=== PATIENT | male | born 1980 | race Asian ===

== ENCOUNTER 2019-09-02 14:49 | Inpatient (IN) | payer OTHER ==
[~2019-09-02] VITALS: Ht 170.2 cm; Wt 71.3 kg
--- NOTE | 2019-09-02 14:49 | NUR ---
ED Nurse Note: brought in by ambulance lafd ra 858 from home co abdominal pain with nausea and vomitting. denies diarrhea; reports soft formed stools x 1 today. ao4. nad. vss. changed into gown. resting in bed; bed locked at lowest position; side rails raised. iv access established. blood collected; sent down to lab. accompanied by family member. will continue to monitor.
[2019-09-02 15:00] VITALS: BP 120/70
[2019-09-02] MEDS ORDERED: Omnipaque-300 100ml vial INJ PRN (15:15)
[2019-09-02] MEDS ORDERED: Morphine Sulfate 2mg/ml Inj(IV/IM USE ONLY) IVP ONE ×3 (15:15→19:00)
[2019-09-02 15:40] LABS: HEMATOCRIT 48.4 % (42.0-52.0); HEMOGLOBIN 16.2 G/DL (14.2-18.0); MEAN CORPUSCULAR VOLUME 82 FL (80-99); PLATELET COUNT 197 K/UL (150-450); RED BLOOD COUNT 5.88 M/UL (4.70-6.10); RED CELL DISTRIBUTION WIDTH 12.2 % (11.6-14.8); WHITE BLOOD COUNT 17.1 K/UL (4.8-10.8)
--- NOTE | 2019-09-02 16:00 | NUR ---
ED Nurse Note: discussed plan of care with patient; aware of pending admission. patient medicated; tolerated well. accompanied by family member. repositioned for comfort; provided with warm blanket. will continue to monitor.
[2019-09-02 16:02] LABS: ANION GAP 10 mmol/L (5-15); BLOOD UREA NITROGEN 17 mg/dL (7-18); CALCIUM 9.5 MG/DL (8.5-10.1); CARBON DIOXIDE 28 MMOL/L (21-32); CHLORIDE 102 MMOL/L (98-107); POTASSIUM 4.1 MMOL/L (3.5-5.1); SODIUM 140 MMOL/L (136-145)
[2019-09-02 16:07] LABS: ALANINE AMINOTRANSFERASE 32 U/L (12-78); ALBUMIN 4.1 G/DL (3.4-5.0); ALBUMIN/GLOBULIN RATIO 1.1 (1.0-2.7); ALKALINE PHOSPHATASE 62 U/L (46-116); ASPARTATE AMINO TRANSFERASE 29 U/L (15-37); BILIRUBIN,TOTAL 0.3 MG/DL (0.2-1.0); CREATINE KINASE 254 U/L (26-308)
--- NOTE | 2019-09-02 17:07 | Diagnostic Imaging Report ---
Clinical Indication: Abdominal pain with nausea, vomiting, diarrhea Technique: No oral contrast utilized, per emergency room physician request IV administration nonionic contrast. Venous obtained through the abdomen and pelvis. Multiplanar reconstructions were generated. Total dose length product 234 mGycm. CTDIvol(s) 4 mGy. Dose reduction achieved using automated exposure control Comparison: none Findings: There is slight enlargement of the pancreas. There is peripancreatic fluid extending into the mesenteric root, transverse mesial colon, and along the anterior Gerota's fascia bilaterally and in the left paracolic gutter. There is also free intraperitoneal fluid within the pelvic mesenteric leaves and pelvic cul-de-sac. The pancreatic parenchyma enhances normally. There are no discrete walled off fluid collections demonstrated. The gallbladder demonstrates questionable sludge but no definite gallstones. The bile ducts are nondilated and there are no definite biliary ductal stones demonstrated. The liver, spleen, adrenals, right kidney are unremarkable. Left kidney demonstrates a small interpolar region cyst. No retroperitoneal or mesenteric mass or adenopathy. No pelvic mass or adenopathy. The included lung bases demonstrate dependent posterior atelectatic changes, are otherwise clear. The bones are unremarkable., Impression: Evidence of uncomplicated nonnecrotizing acute pancreatitis Incidental finding of small interpolar region left renal cyst, posterior dependent pulmonary atelectatic changes The CT scanner at [facility] is accredited by the [employer] and the scans are performed using protocols designed to limit radiation exposure to as low as reasonably achievable to attain images of sufficient resolution adequate for diagnostic evaluation.
--- NOTE | 2019-09-02 17:09 | Diagnostic Imaging Report ---
Indication: Chest pain Technique: One view of the chest Comparison: none Findings: Lungs and pleural spaces are clear. The heart size is normal. The aorta is slightly tortuous Impression: No acute process
--- NOTE | 2019-09-02 17:40 | NUR ---
ED Nurse Note: urine collected; sent down to lab.
[2019-09-02 18:30] VITALS: BP 121/69
[2019-09-02 18:42] LABS: APPEARANCE,URINE CLEAR; BILIRUBIN, URINE NEGATIVE (NEGATIVE); COLOR,URINE YELLOW; GLUCOSE, URINE (UA) NEGATIVE (NEGATIVE); KETONES,URINE NEGATIVE (NEGATIVE); LEUKOCYTE ESTERASE ,URINE NEGATIVE (NEGATIVE); NITRITE,URINE NEGATIVE (NEGATIVE); PH,URINE 6.5 (4.5-8.0); PROTEIN,URINE NEGATIVE (NEGATIVE); UROBILINOGEN,URINE NORMAL MG/DL (0.0-1.0)
--- NOTE | 2019-09-02 19:00 | NUR ---
ED Nurse Note: belongingslist completed with patient.
--- NOTE | 2019-09-02 19:15 | NUR ---
ED Nurse Note: type and cross and hep panel drawn; sent down to lab.
--- NOTE | 2019-09-02 19:29 | Emergency Room Report ---
History of Present Illness General Chief Complaint: Abdominal Pain Source: Patient Present Illness HPI 38-year-old male with no significant past medical history brought in by paramedics complaining of sudden onset of acute abdominal pain starting this morning. Rates the pain 10 out of 10 mostly epigastric. Complains of few bouts of nonbloody emesis, denies diarrhea, denies fever and chills. Has not taken medication for symptom relief. Reports that now the pain is radiating to his chest. Denies headache and dizziness. Denies urinary symptoms. Denies history of alcohol abuse, tobacco smoke, drug use. Denies any surgical history in abdomen. Appears to be stable with stable vital signs. Allergies: Coded Allergies: No Known Allergies (Unverified , 09/02/19) Patient History Past Medical History: see triage record Past Surgical History: none Pertinent Family History: none Immunizations: UTD Reviewed Nursing Documentation: PMH: Agreed; PSxH: Agreed Nursing Documentation-PMH Past Medical History: No Stated History Review of Systems All Other Systems: negative except mentioned in HPI Physical Exam Vital Signs Date Time Temp Pulse Resp B/P (MAP) Pulse Ox O2 Delivery O2 Flow Rate FiO2 09/02/19 14:42 97.3 60 16 120/70 (87) 100 Room Air Sp02 EP Interpretation: reviewed, normal General Appearance: alert, GCS 15, non-toxic, moderate distress Head: normocephalic, atraumatic Eyes: bilateral eye normal inspection, bilateral eye PERRL ENT: hearing grossly normal, normal pharynx, no angioedema, normal voice Neck: full range of motion, supple/symm/no masses Respiratory: chest non-tender, lungs clear, normal breath sounds, no rhonchi, no respiratory distress, no retraction, speaking full sentences Cardiovascular #1: regular rate, rhythm, no edema, no murmur Gastrointestinal: non tender, soft, no mass, no organomegaly, no peritonitis, no bruit, no guarding, no hernia, no pulsatile mass, no rebound Rectal: deferred Musculoskeletal: back normal, no calf tenderness Neurologic: alert, motor strength/tone normal, oriented x3, sensory intact, responsive, speech normal Psychiatric: judgement/insight normal, memory normal, mood/affect normal, no suicidal/homicidal ideation Skin: no rash Lymphatic: no adenopathy Medical Decision Making PA Attestation All my diagnosis and treatment plans were reviewed ad discussed with my supervising physician Dr. Scott Diagnostic Impression: Primary Impression: Pancreatitis ER Course 38-year-old male with no significant past medical history brought in by paramedics complaining of sudden onset of acute abdominal pain starting this morning. Rates the pain 10 out of 10 mostly epigastric. Complains of few bouts of nonbloody emesis, denies diarrhea, denies fever and chills. Has not taken medication for symptom relief. Reports that now the pain is radiating to his chest. Denies headache and dizziness. Denies urinary symptoms. Denies history of alcohol abuse, tobacco smoke, drug use. Denies any surgical history in abdomen. Appears to be stable with stable vital signs. Ddx considered but are not limited to: appendicitis, cholecystis, gastritis, gastroenteritis, UTI, pyelonephritis, SBO, diverticulitis, influenza with GI manifestation, SC, pancreatitis Vital signs: are WNL, pt. is afebrile H&PE are most consistent with: Pancreatitis ORDERS: abdominal CT, abdominal pain set, EKG, ED INTERVENTIONS: NS bolus, Zofran, morphine Patient was admitted with diagnosis of pancreatitis to Dr. De La Fuente under supervision of : Sonia pt stable at time of admission EKG Diagnostic Results Rate: normal Rhythm: NSR ST Segments: no acute changes Other Impression no acute ST changes Chest X-Ray Diagnostic Results Chest X-Ray Diagnostic Results : Chest X-Ray Ordered: Yes # of Views/Limited/Complete: 1 View Indication: Other EP Interpretation: Yes PA Xray: Interpretation reviewed, by supervising MD, and agrees with findings. Interpretation: no consolidation, no effusion, no pneumothorax Impression: No acute disease Electronically Signed by: Osmin Coombs PA-C CT/MRI/US Diagnostic Results CT/MRI/US Diagnostic Results : Imaging Test Ordered: CT abdomen pelvis with contrast Impression Pancreatitis noted Last Vital Signs Date Time Temp Pulse Resp B/P (MAP) Pulse Ox O2 Delivery O2 Flow Rate FiO2 09/02/19 18:30 97.3 78 14 121/69 99 Room Air Status: improved Disposition: ADMITTED INPATIENT Condition: Serious Referrals: [facility],REFERRING (PCP) Patient Instructions: Abdominal Pain, Adult Osmin Hernandez Sep 02, 2019 19:29
--- NOTE | 2019-09-02 19:44 | NUR ---
NURSE NOTES: Received telephone report from ER nurse Stephen Duval RN. Awaiting patient.
--- NOTE | 2019-09-02 19:45 | NUR ---
TRANSFER TO FLOOR: Patient transferred to MED SURG 311-1 as ordered, per CHARMAINE MENCHACA. Report given to REJI SHAFER. PATIENT STABLE FOR TRANSFER. PATIENT TRANSPORTED TO UNIT WITH SLIVER CHOPPER. PT LEFT WITH ALL BELONGINGS AND ADMISSION PACKET.
--- NOTE | 2019-09-02 19:50 | NUR ---
NURSE NOTES: Patient arrived via wheelchair with die techniciankevin Christy. Belongings listed checked and completed. Patient on room air, no signs of distress or labored breathing. IV intact, patent, and saline locked. Reporting reduced pain, 2/10. Bed in lowest position with call light in reach. Will call MD for orders and continue to monitor patient.
[2019-09-02 20:00] VITALS: BP 119/78
--- NOTE | 2019-09-02 20:12 | NUR ---
NURSE NOTES: NURSE NOTES: Called Dr. De La Fuente for admission orders. MD requested for RN to call back in 30 minutes. Will call at that time. Charge nurse aware.
[2019-09-02] MEDS: Morphine Sulfate 2mg/ml Inj(IV/IM USE ONLY) IVP PRN (21:08)
[2019-09-03] VITALS: BP 109/71
[2019-09-03] MEDS: Morphine Sulfate 2mg/ml Inj(IV/IM USE ONLY) IVP PRN ×3 (03:36→19:37)
[2019-09-03 04:00] VITALS: BP 121/76
[2019-09-03 07:05] LABS: BASOPHILS % (AUTO) 0.3 % (0.0-2.0); EOSINOPHILS % (AUTO) 0.1 % (0.0-3.0); HEMATOCRIT 43.9 % (42.0-52.0); HEMOGLOBIN 15.1 G/DL (14.2-18.0); LYMPHOCYTES % (AUTO) 9.4 % (20.0-45.0); MEAN CORPUSCULAR VOLUME 81 FL (80-99); MONOCYTES % (AUTO) 6.6 % (1.0-10.0); NEUTROPHILS % (AUTO) 83.7 % (45.0-75.0); PLATELET COUNT 198 K/UL (150-450); RED BLOOD COUNT 5.45 M/UL (4.70-6.10); RED CELL DISTRIBUTION WIDTH 11.9 % (11.6-14.8); WHITE BLOOD COUNT 14.4 K/UL (4.8-10.8)
[2019-09-03 07:27] LABS: ANION GAP 10 mmol/L (5-15); BLOOD UREA NITROGEN 13 mg/dL (7-18); CALCIUM 8.6 MG/DL (8.5-10.1); CARBON DIOXIDE 28 MMOL/L (21-32); CHLORIDE 102 MMOL/L (98-107); POTASSIUM 3.7 MMOL/L (3.5-5.1); SODIUM 139 MMOL/L (136-145)
--- NOTE | 2019-09-03 07:32 | NUR ---
HAND-OFF: Report given to HOLLIS Talbot.
[2019-09-03 07:57] LABS: AMYLASE 972 U/L (25-115)
[2019-09-03 08:00] VITALS: BP 108/69
--- NOTE | 2019-09-03 08:00 | NUR ---
NURSE NOTES: Pt lying in bed w/friend at bedside, bed in lowest position, and call light within reach. Pt A&Ox4, VSS, and in no apparent distress. IV site intact/asymptomatic w/IVF infusing and skin intact. Pt c/o 5/10 abdominal pain but pain med not yet due; will contact MD regarding pain management. Will continue to monitor.
[2019-09-03] MEDS ORDERED: Morphine Sulfate 4mg/ml Inj (IV USE ONLY) IVP PRN (10:00)
--- NOTE | 2019-09-03 11:36 | GI Initial Consult Note ---
History of Present Illness General Date patient seen: Sep 03, 2019 Time patient seen: 11:30 Reason for Hospitalization: Abdominal Pain Referring physician: YANIRA MONTANO Reason for Consultation: PANCREATITIS Present Illness HPI 38-year-old male with no significant past medical history brought in by paramedics complaining of sudden onset of acute abdominal pain starting this morning. Rates the pain 10 out of 10 mostly epigastric. Complains of few bouts of nonbloody emesis, denies diarrhea, denies fever and chills. Has not taken medication for symptom relief. Reports that now the pain is radiating to his chest. Denies headache and dizziness. Denies urinary symptoms. Denies history of alcohol abuse, tobacco smoke, drug use. Denies any surgical history in abdomen. Appears to be stable with stable vital signs. GI consulted for severe pancreatitis. Patient seen, awake alert oriented x4 no apparent distress. Abdominal pelvis CT noted evidence of uncomplicated nonnecrotizing acute pancreatitis. In addition laboratory review noted lipase levels over 10,000. At the time of evaluation, the patient has complaint of abdominal pain and tenderness. The patient denied any EtOH, drug or tobacco use. The patient states prior to his initial onset of abdominal pain, he most likely ate old food and alot of muffins. The patient associated his abdominal pain with multiple episodes of emesis in which he denied any hematic emesis or coffee grounds. The patient has no history of endoscopic or colonoscopy. Allergies: Coded Allergies: No Known Allergies (Unverified , 09/02/19) Patient History History Provided By: Patient, Medical Record H Narrative Past Medical History: see triage record Past Surgical History: none Pertinent Family History: none Immunizations: UTD Reviewed Nursing Documentation: PMH: Agreed; PSxH: Agreed Nursing Documentation-PM Past Medical History: No Stated History Social History: Denies: smoking, alcohol use, drug use, other Review of Systems All Other Systems: negative except mentioned in HPI Physical Exam Vital Signs Date Time Temp Pulse Resp B/P (MAP) Pulse Ox O2 Delivery O2 Flow Rate FiO2 09/02/19 14:42 97.3 60 16 120/70 (87) 100 Room Air Sp02 EP Interpretation: reviewed, normal Labs Laboratory Tests Test 09/02/19 14:45 09/02/19 17:40 09/02/19 19:00 09/03/19 05:55 White Blood Count 17.1 K/UL (4.8-10.8) H 14.4 K/UL (4.8-10.8) H Red Blood Count 5.88 M/UL (4.70-6.10) 5.45 M/UL (4.70-6.10) Hemoglobin 16.2 G/DL (14.2-18.0) 15.1 G/DL (14.2-18.0) Hematocrit 48.4 % (42.0-52.0) 43.9 % (42.0-52.0) Mean Corpuscular Volume 82 FL (80-99) 81 FL (80-99) Mean Corpuscular Hemoglobin 27.6 PG (27.0-31.0) 27.7 PG (27.0-31.0) Mean Corpuscular Hemoglobin Concent 33.6 G/DL (32.0-36.0) 34.4 G/DL (32.0-36.0) Red Cell Distribution Width 12.2 % (11.6-14.8) 11.9 % (11.6-14.8) Platelet Count 197 K/UL (150-450) 198 K/UL (150-450) Mean Platelet Volume 7.3 FL (6.5-10.1) 7.4 FL (6.5-10.1) Neutrophils (%) (Auto) % (45.0-75.0) 83.7 % (45.0-75.0) H Lymphocytes (%) (Auto) % (20.0-45.0) 9.4 % (20.0-45.0) L Monocytes (%) (Auto) % (1.0-10.0) 6.6 % (1.0-10.0) Eosinophils (%) (Auto) % (0.0-3.0) 0.1 % (0.0-3.0) Basophils (%) (Auto) % (0.0-2.0) 0.3 % (0.0-2.0) Differential Total Cells Counted 100 Neutrophils % (Manual) 90 % (45-75) H Lymphocytes % (Manual) 7 % (20-45) L Monocytes % (Manual) 3 % (1-10) Eosinophils % (Manual) 0 % (0-3) Basophils % (Manual) 0 % (0-2) Band Neutrophils 0 % (0-8) Platelet Estimate Adequate Platelet Morphology Normal Red Blood Cell Morphology Normal Prothrombin Time 10.3 SEC (9.30-11.50) Prothromb Time International Ratio 1.0 (0.9-1.1) Activated Partial Thromboplast Time 25 SEC (23-33) Sodium Level 140 MMOL/L (136-145) 139 MMOL/L (136-145) Potassium Level 4.1 MMOL/L (3.5-5.1) 3.7 MMOL/L (3.5-5.1) Chloride Level 102 MMOL/L (98-107) 102 MMOL/L (98-107) Carbon Dioxide Level 28 MMOL/L (21-32) 28 MMOL/L (21-32) Anion Gap 10 mmol/L (5-15) 10 mmol/L (5-15) Blood Urea Nitrogen 17 mg/dL (7-18) 13 mg/dL (7-18) Creatinine 1.0 MG/DL (0.55-1.30) 1.0 MG/DL (0.55-1.30) Estimat Glomerular Filtration Rate > 60 mL/min (>60) > 60 mL/min (>60) Glucose Level 127 MG/DL (74-106) H 118 MG/DL (74-106) H Calcium Level 9.5 MG/DL (8.5-10.1) 8.6 MG/DL (8.5-10.1) Total Bilirubin 0.3 MG/DL (0.2-1.0) Aspartate Amino Transf (AST/SGOT) 29 U/L (15-37) Alanine Aminotransferase (ALT/SGPT) 32 U/L (12-78) Alkaline Phosphatase 62 U/L (46-116) Total Creatine Kinase 254 U/L (26-308) Troponin I 0.000 ng/mL (0.000-0.056) Total Protein 7.8 G/DL (6.4-8.2) Albumin 4.1 G/DL (3.4-5.0) Globulin 3.7 g/dL Albumin/Globulin Ratio 1.1 (1.0-2.7) Lipase 57842 U/L (73-393) H 6068 U/L (73-393) H Serum Alcohol < 3 mg/dL Urine Color Yellow Urine Appearance Clear Urine pH 6.5 (4.5-8.0) Urine Specific Purdys 1.010 (1.005-1.035) Urine Protein Negative (NEGATIVE) Urine Glucose (UA) Negative (NEGATIVE) Urine Ketones Negative (NEGATIVE) Urine Blood Negative (NEGATIVE) Urine Nitrite Negative (NEGATIVE) Urine Bilirubin Negative (NEGATIVE) Urine Urobilinogen Normal MG/DL (0.0-1.0) Urine Leukocyte Esterase Negative (NEGATIVE) Urine Opiates Screen Negative (NEGATIVE) Urine Barbiturates Screen Negative (NEGATIVE) Phencyclidine (PCP) Screen Negative (NEGATIVE) Urine Amphetamines Screen Negative (NEGATIVE) Urine Benzodiazepines Screen Negative (NEGATIVE) Urine Cocaine Screen Negative (NEGATIVE) Urine Marijuana (THC) Screen Negative (NEGATIVE) Hepatitis A Antibody Total Pending Hepatitis B Surface Antibody, Quant Pending Hepatitis C Antibody Pending Triglycerides Level Pending Cholesterol Level Pending LDL Cholesterol Pending HDL Cholesterol Pending Cholesterol/HDL Ratio Pending Amylase Level 972 U/L (25-115) *H General Appearance: well appearing, no apparent distress, alert Head: normocephalic EENT: PERRL/EOMI, normal ENT inspection Neck: supple Respiratory: normal breath sounds, no respiratory distress Cardiovascular: normal rate Gastrointestinal: normal inspection, non tender, soft, normal bowel sounds, non -distended Rectal: deferred Genitourinary: deferred Musculoskeletal: normal inspection, back normal Neurologic: alert, oriented x3, responsive, normal inspection Psychiatric: normal inspection, judgement/insight normal, memory normal Skin: normal inspection, normal color, no rash, warm/dry, palpation normal, well hydrated Lymphatic: normal inspection, no adenopathy Current Medications Current Medications Medications (Trade) Dose Ordered Sig/Jessica Route PRN Reason Start Time Stop Time Status Last Admin Dose Admin Iohexol (OMNIPAQUE-300 100ml) 100 ml NOW PRN INJ Radiology Procedure 09/02/19 15:15 09/04/19 15:04 Morphine Sulfate (Morphine Sulfate) 2 mg Q3H PRN IVP For Pain 09/03/19 11:15 09/10/19 11:14 Ondansetron HCl (Zofran) 4 mg Q6H PRN IVP Nausea & Vomiting 09/02/19 21:00 10/02/19 20:59 09/03/19 09:59 Sodium Chloride 1,000 ml @ 150 mls/hr Q6H40M IV 09/03/19 12:00 10/02/19 11:59 09/03/19 11:00 GI: Plan Problems: (1) Pancreatitis Plan Abdominal pelvis CT noted with nonnecrotizing acute pancreatitis U tox negative Initial lipase level over 10,000, which is now downtrending at ~6000. The patient needs to be on strict bowel rest, with aggressive IV hydration of NS at 150 cc/h. Pain management PPI IV Will add on lipid panel to rule out any hypertriglyceridemia Repeat labs for tomorrow MRCP r/o pancreatic divisum We will follow on a daily basis with any additional recommendations Discussed with Dr. Clarke. Thank you for this patient referral, we will follow. The patient was seen and examined at bedside and all new and available data was reviewed in the patients chart. I agree with the above findings, impression and plan. (Patient seen earlier today. Signature stamp does not reflect patient encounter time.). - MD G[facility]elda [facility] SENIOR ORACLE DATABASE DEVELOPER Sep 03, 2019 11:36
[2019-09-03 11:48] LABS: CHOLESTEROL 155 MG/DL (< 200); HDL CHOLESTEROL 36 MG/DL (40-60); TRIGLYCERIDES 55 MG/DL (30-150)
[2019-09-03 12:00] VITALS: BP 97/56
--- NOTE | 2019-09-03 14:43 | NUR ---
*-* INSURANCE *-* ALL CLINICALS HAVE BEEN FAXED TO: REF# [id number] # [phone] FAX# [phone] REVIEWS/CLINICALS
[2019-09-03 16:00] VITALS: BP 125/73
--- NOTE | 2019-09-03 16:53 | Diagnostic Imaging Report ---
Indication: Reason For Exam: ABN LABS Technique: Coronal and axial single shot fast spin-echo breath-hold, axial T2 FRFSE, 2-D thick slab MRCP, AXIAL 2-D FIESTA fat saturated, axial 3-D dual echo breath-hold, water weighted axial LAVA FLEX, revealed 3-D MRCP images were obtained of the abdomen. MIP reconstructions were generated of the bile ducts Comparison: CT scan of the abdomen and pelvis 09/02/2019 Findings: No gallstones are evident. No biliary ductal dilatation. No evidence of choledocholithiasis. Normal caliber pancreatic duct. There is edema of the pancreas and considerable fluid/phlegmon in the upper abdomen. Fluid/phlegmon is seen surrounding the pancreas, along the anterior Gerota's fascia bilaterally, within the bilateral paracolic gutters, along the left anterior Gerota's fascia, and surrounding both kidneys. Extent of fluid is more widespread than demonstrated on previous CT. There is also evidence of free intraperitoneal fluid over the liver and the spleen. No focal pancreatic abnormality is evident. The liver, pancreas, adrenals, kidneys are unremarkable. There are small bilateral pleural effusions which are not evident on the previous day's CT scan. Impression: No evidence of gallstones or choledocholithiasis or biliary ductal dilatation Evidence of peripancreatic phlegmon, appearing more widespread and extensive than on the prior exam, and development of free intraperitoneal fluid Bilateral pleural effusions, new since previous day's exam
--- NOTE | 2019-09-03 18:15 | History and Physical Report ---
DATE OF ADMISSION: 09/02/2019 HISTORY OF PRESENT ILLNESS: This is a 38-year-old male with an unremarkable past history, came to the hospital with upper abdomen and lower chest discomfort, mostly in the epigastric area. This started yesterday morning fairly suddenly. He had emesis, but no diarrhea. No hematemesis. No melena. The patient admitted to rare alcohol usage. He denies any previous history of abdominal symptoms such as those which may be seen with gallstones, etc. He denies any previous surgery. He was admitted to the hospital due to findings of elevated lipase and concern of pancreatitis. PAST MEDICAL HISTORY: Currently unremarkable. PAST SURGICAL HISTORY: None. ALLERGIES: None. REVIEW OF SYSTEMS: Denies any headaches, hematemesis, melena, hematochezia, night sweats, or weight loss. PHYSICAL EXAMINATION: VITAL SIGNS: Blood pressure 120/70, heart rate 90, respirations 18. He is afebrile. GENERAL: Reveals a young male. HEENT: Unremarkable. LUNGS: Clear breath sounds bilaterally. ABDOMEN: Soft with tenderness in the epigastric area. EXTREMITIES: There is no peripheral edema. No cyanosis or clubbing. LABORATORY DATA: Lab testing shows white count 17,000, otherwise normal CBC. Glucose 127. Lipase 10,535. Toxicology negative. Urinalysis negative. Hepatitis serology pending. Coags are normal. The patient underwent abdomen and pelvis CT, which shows atelectasis at lung bases. There is also evidence of questionable sludge in the gallbladder, nondilated. There is slight enlargement of the pancreas. X-ray of chest is negative. IMPRESSION: Acute pancreatitis, etiology uncertain. DISCUSSION: Admit to the hospital. Provide IV fluids, IV antiemetics, morphine for pain control. We will consult Gastroenterology. Discussed with the patient carefully. Vince De La Fuente M.D. DR: MOUSTAPHA JOB#: [id number] CC:
--- NOTE | 2019-09-03 19:30 | NUR ---
HAND-OFF: Report given to HOLLIS Luke.
--- NOTE | 2019-09-03 19:54 | NUR ---
CASE MANAGEMENT: REVIEW 38 YEAR OLD MALE PRESENTED TO ED FROM HOME CC: EPIGASTRIC PAIN 04/24 SI: PANCREATITIS T 97.3 HR 60 BP 16 BP 120/70 SAT 100% ROOM AIR WBC 17.1 AMYLASE 972 LIPASE 54160 MRI ABD -- NO EVIDENCE OF GALLSTONES OR CHOLEDOCHOLITHIASIS OR BILIARY DUCTAL DILATATION IS: NS IVF BOLUS X1 MORPHINE IV X1 PEPCID PO X1 ZOFRAN IV X1 NPO PATIENT ADMITTED TO MED/SURG UNIT 09/02/2019 DCP: PATIENT IS FROM HOME
--- NOTE | 2019-09-03 19:56 | NUR ---
NURSE NOTES: Received report from Dahiana SHAFER. Rounding is done. Patient is in bed, and a/o x 4. Patient just got pain medication and will continue to monitor. Friend is at bedside. Breathing is even and unlabored. IV site is intact and IV fluid is running. Bed is on alarm, locked, and lowest position. Call light within reach. Will continue to monitor.
[2019-09-03 20:00] VITALS: BP 110/71
[2019-09-03] MEDS: Meropenem 500 MG in NS 55 ML IVPB SCH (22:19)
--- NOTE | 2019-09-03 22:20 | NUR ---
NURSE NOTES: Patient is SCD on both leg.
[2019-09-04] VITALS (7 sets, daily range): BP systolic 105–122; BP diastolic 70–85
[2019-09-04] MEDS: Meropenem 500 MG in NS 55 ML IVPB SCH ×2 (05:24→13:31)
[2019-09-04 06:39] LABS: HEMOGLOBIN 14.3 G/DL (14.2-18.0); MEAN CORPUSCULAR VOLUME 81 FL (80-99); PLATELET COUNT 159 K/UL (150-450); RED BLOOD COUNT 5.18 M/UL (4.70-6.10); RED CELL DISTRIBUTION WIDTH 11.8 % (11.6-14.8); WHITE BLOOD COUNT 16.9 K/UL (4.8-10.8)
[2019-09-04 07:17] LABS: ALANINE AMINOTRANSFERASE 19 U/L (12-78); ALBUMIN 2.8 G/DL (3.4-5.0); ALBUMIN/GLOBULIN RATIO 0.8 (1.0-2.7); ALKALINE PHOSPHATASE 51 U/L (46-116); ANION GAP 9 mmol/L (5-15); ASPARTATE AMINO TRANSFERASE 16 U/L (15-37); BLOOD UREA NITROGEN 11 mg/dL (7-18); CALCIUM 8.4 MG/DL (8.5-10.1); CARBON DIOXIDE 27 MMOL/L (21-32); CHLORIDE 103 MMOL/L (98-107); POTASSIUM 3.4 MMOL/L (3.5-5.1); SODIUM 139 MMOL/L (136-145)
--- NOTE | 2019-09-04 07:28 | NUR ---
NURSE NOTES: Report received from Ti RN, rounds made. Patient resting in semi-fowlers position in bed. No distress on RA. IV (NS at 150 ml/hr) infusing to LAC, site asymptomatic. Abdominal pain 10/23. Denies NV, SOB at this time. Reinforced NPO status, provided oral mouth care kit and instructed on use, verbalized understanding. Call light in reach, bed in lowest position, will continue to monitor.
--- NOTE | 2019-09-04 07:38 | NUR ---
HAND-OFF: Report given to Natty SHAFER. Patient in stable condition.
--- NOTE | 2019-09-04 07:50 | NUR ---
NURSE NOTES: Report received from Haily SHAFER, rounds made. Patient resting in semi-fowlers position in bed. No distress on RA. Left knee pain 01/22, will medicate as ordered. SCD to RLE on. IVF (D5 1/2 + 20 KCL at 75 ml/hr) infusing to LH, site asymptomatic. LLE dressing CDI. Neuro checks done, intact, skin cool, wiggles, pulses palpable, no NT, pedal pushes 5/5. FC draining y/cl urine to gravity, will DC after ambulates with PT. Encouraged IS, demonstrates correctly. Denies SOB, NV. Call light in reach, bed in lowest position, will continue to monitor. Addendum: 09/04/19 at 1746 by Natty Daugherty RN DISREGARD. WRONG PATIENT.
[2019-09-04] MEDS: Morphine Sulfate 2mg/ml Inj(IV/IM USE ONLY) IVP PRN ×4 (09:40→22:04)
--- NOTE | 2019-09-04 10:15 | NUR ---
NURSE NOTES: Quinten PICKER MACHINE OPERATOR, notified of K 3.4, see orders.
--- NOTE | 2019-09-04 10:49 | GI Progress Note ---
Assessment/Plan Problems: (1) Abdominal pain ICD Codes: R10.9 - Unspecified abdominal pain SNOMED: 59262699 (2) Hepatitis A antibody positive ICD Codes: R76.8 - Other specified abnormal immunological findings in serum SNOMED: 825708090 (3) Pancreatitis ICD Codes: K85.90 - Acute pancreatitis without necrosis or infection, unspecified SNOMED: 48845773 Status: progressing Status Narrative Discussed with Dr. Clarke. Assessment/Plan Abdominal pelvis CT noted with nonnecrotizing acute pancreatitis MRCP reviewed U tox negative lipase levels improving lipid panel to rule out any hypertriglyceridemia >> negative trial CLD, advance as tolerated maintain IVF @ 75cc/hr f/u Hep A IgM given positive Ab Pain management PPI IV cont meropenem Repeat labs for tomorrow We will follow on a daily basis with any additional recommendations The patient was seen and examined at bedside and all new and available data was reviewed in the patients chart. I agree with the above findings, impression and plan. (Patient seen earlier today. Signature stamp does not reflect patient encounter time.). - Celestine Clarke MD Subjective Subjective abdominal pain improved able to ambulate Objective Last 24 Hour Vital Signs Date Time Temp Pulse Resp B/P (MAP) Pulse Ox O2 Delivery O2 Flow Rate FiO2 09/04/19 04:54 99.4 09/04/19 04:54 99.4 09/04/19 04:00 100.9 107 19 113/70 (84) 99 09/04/19 00:00 99.5 108 20 115/78 (90) 97 09/03/19 21:00 Room Air 09/03/19 20:00 99.6 110 21 110/71 (84) 98 09/03/19 16:00 99.7 103 20 125/73 (90) 96 09/03/19 14:53 99.3 09/03/19 12:00 100.3 81 21 97/56 (70) 97 Intake and Output 09/03/19 09/04/19 19:00 07:00 Intake Total 1050 ml 1555 ml Balance 1050 ml 1555 ml Intake IV Total 1050 ml 1555 ml # Voids 2 Laboratory Tests Test 09/03/19 17:20 09/04/19 05:35 Lactic Acid Level 0.90 mmol/L (0.4-2.0) White Blood Count 16.9 K/UL (4.8-10.8) H Red Blood Count 5.18 M/UL (4.70-6.10) Hemoglobin 14.3 G/DL (14.2-18.0) Hematocrit 42.0 % (42.0-52.0) Mean Corpuscular Volume 81 FL (80-99) Mean Corpuscular Hemoglobin 27.5 PG (27.0-31.0) Mean Corpuscular Hemoglobin Concent 33.9 G/DL (32.0-36.0) Red Cell Distribution Width 11.8 % (11.6-14.8) Platelet Count 159 K/UL (150-450) Mean Platelet Volume 6.8 FL (6.5-10.1) Neutrophils (%) (Auto) % (45.0-75.0) Lymphocytes (%) (Auto) % (20.0-45.0) Monocytes (%) (Auto) % (1.0-10.0) Eosinophils (%) (Auto) % (0.0-3.0) Basophils (%) (Auto) % (0.0-2.0) Differential Total Cells Counted 100 Neutrophils % (Manual) 81 % (45-75) H Lymphocytes % (Manual) 9 % (20-45) L Monocytes % (Manual) 9 % (1-10) Eosinophils % (Manual) 1 % (0-3) Basophils % (Manual) 0 % (0-2) Band Neutrophils 0 % (0-8) Platelet Estimate Adequate Platelet Morphology Normal Red Blood Cell Morphology Normal Sodium Level 139 MMOL/L (136-145) Potassium Level 3.4 MMOL/L (3.5-5.1) L Chloride Level 103 MMOL/L (98-107) Carbon Dioxide Level 27 MMOL/L (21-32) Anion Gap 9 mmol/L (5-15) Blood Urea Nitrogen 11 mg/dL (7-18) Creatinine 1.0 MG/DL (0.55-1.30) Estimat Glomerular Filtration Rate > 60 mL/min (>60) Glucose Level 102 MG/DL (74-106) Calcium Level 8.4 MG/DL (8.5-10.1) L Total Bilirubin 1.0 MG/DL (0.2-1.0) Aspartate Amino Transf (AST/SGOT) 16 U/L (15-37) Alanine Aminotransferase (ALT/SGPT) 19 U/L (12-78) Alkaline Phosphatase 51 U/L (46-116) Total Protein 6.3 G/DL (6.4-8.2) L Albumin 2.8 G/DL (3.4-5.0) L Globulin 3.5 g/dL Albumin/Globulin Ratio 0.8 (1.0-2.7) L Lipase 1497 U/L (73-393) H Hepatitis A IgM Antibody Pending Height (Feet): 5 Height (Inches): 7.00 Weight (Pounds): 157 General Appearance: WD/WN, no apparent distress, alert Cardiovascular: normal rate Respiratory/Chest: normal breath sounds, no respiratory distress Abdominal Exam: normal bowel sounds, non tender, soft Extremities: normal range of motion, non-tender Aguilar Madison PLATE [employer]ER Sep 04, 2019 10:49
--- NOTE | 2019-09-04 12:23 | NUR ---
CASE MANAGEMENT: REVIEW 09/04/19 SI: NONNECROTIZING ACUTE PANCREATITIS . HEPATITIS A (+) . ABDOMINAL PAIN 100.9 107 19 113/70 99% ROOM AIR WBC 16.9 K+ 3.4 CA+ 8.4 LIPASE 1497 IS: IV MEROPENEM Q8HR IV NS @75ML/HR IV MORPHINE Q3HR/PRN IV ZOFRAN Q6HR/PRN \: 3E MED/SURG UNIT DCP: PATIENT IS FROM HOME DIET: START CLEAR LIQ DIET
--- NOTE | 2019-09-04 16:39 | NUR ---
*-* INSURANCE *-* ALL CLINICALS HAVE BEEN FAXED TO: REF# [id number] # [phone] FAX# [phone] REVIEWS/CLINICALS
--- NOTE | 2019-09-04 18:34 | Pulmonology Progress Note ---
Assessment/Plan Assessment/Plan IMPRESSION: Acute pancreatitis, etiology uncertain. DISCUSSION: continue IV fluids, IV antiemetics, morphine for pain control. seen by gastroenterology and ID Noted hepatitis A antibody positive. MRCP shows significant pancreatitis Vince De La Fuente M.D. Subjective Interval Events: feeling better. Seen by gastroenterology and ID Constitutional: Reports: no symptoms HEENT: Repors: no symptoms Respiratory: Reports: no symptoms Cardiovascular: Reports: no symptoms Gastrointestinal/Abdominal: Reports: nausea Genitourinary: Reports: no symptoms Neurologic: Reports: no symptoms Allergies: Coded Allergies: No Known Allergies (Unverified , 09/02/19) Objective Last 24 Hour Vital Signs Date Time Temp Pulse Resp B/P (MAP) Pulse Ox O2 Delivery O2 Flow Rate FiO2 09/04/19 16:45 98.5 126 95 09/04/19 16:00 101.0 122 20 120/77 (91) 93 09/04/19 13:30 98.0 09/04/19 12:00 99.9 115 20 119/72 (88) 96 09/04/19 09:00 Room Air 09/04/19 08:00 99.0 106 19 105/72 (83) 94 09/04/19 04:54 99.4 09/04/19 04:54 99.4 09/04/19 04:00 100.9 107 19 113/70 (84) 99 09/04/19 00:00 99.5 108 20 115/78 (90) 97 09/03/19 21:00 Room Air 09/03/19 20:00 99.6 110 21 110/71 (84) 98 Intake and Output 09/03/19 09/04/19 19:00 07:00 Intake Total 1050 ml 1555 ml Balance 1050 ml 1555 ml Intake IV Total 1050 ml 1555 ml # Voids 2 General Appearance: no acute distress HEENT: normocephalic Respiratory/Chest: chest wall non-tender, lungs clear Cardiovascular: normal peripheral pulses Abdomen: non distended, tender Laboratory Tests 09/04/19 05:35: White Blood Count 16.9H, Red Blood Count 5.18, Hemoglobin 14.3, Hematocrit 42.0 , Mean Corpuscular Volume 81, Mean Corpuscular Hemoglobin 27.5, Mean Corpuscular Hemoglobin Concent 33.9, Red Cell Distribution Width 11.8, Platelet Count 159, Mean Platelet Volume 6.8, Neutrophils (%) (Auto) , Lymphocytes (%) ( Auto) , Monocytes (%) (Auto) , Eosinophils (%) (Auto) , Basophils (%) (Auto) , Differential Total Cells Counted 100, Neutrophils % (Manual) 81H, Lymphocytes % (Manual) 9L, Monocytes % (Manual) 9, Eosinophils % (Manual) 1, Basophils % ( Manual) 0, Band Neutrophils 0, Platelet Estimate Adequate, Platelet Morphology Normal, Red Blood Cell Morphology Normal, Sodium Level 139, Potassium Level 3.4L , Chloride Level 103, Carbon Dioxide Level 27, Anion Gap 9, Blood Urea Nitrogen 11, Creatinine 1.0, Estimat Glomerular Filtration Rate > 60, Glucose Level 102, Calcium Level 8.4L, Total Bilirubin 1.0, Aspartate Amino Transf (AST/SGOT) 16, Alanine Aminotransferase (ALT/SGPT) 19, Alkaline Phosphatase 51, Total Protein 6.3L, Albumin 2.8L, Globulin 3.5, Albumin/Globulin Ratio 0.8L, Lipase 1497H, Hepatitis A IgM Antibody [Pending] Current Medications Medications (Trade) Dose Ordered Sig/Jessica Route PRN Reason Start Time Stop Time Status Last Admin Dose Admin Acetaminophen (Tylenol) 650 mg Q4H PRN ORAL Mild Pain/Temp > 100.5 09/03/19 13:45 10/03/19 13:44 09/04/19 13:36 Meropenem 1 gm/ Sodium Chloride 100 ml @ 200 mls/hr Q8HR IVPB 09/04/19 22:00 09/09/19 21:59 Morphine Sulfate (Morphine Sulfate) 2 mg Q3H PRN IVP For Pain 09/03/19 11:15 09/10/19 11:14 09/04/19 18:31 Ondansetron HCl (Zofran) 4 mg Q6H PRN IVP Nausea & Vomiting 09/02/19 21:00 10/02/19 20:59 09/03/19 20:26 Sodium Chloride 1,000 ml @ 75 mls/hr [id number] IV 09/04/19 12:00 10/02/19 11:59 09/04/19 11:31 Vince De La Fuente MD Sep 04, 2019 18:34
--- NOTE | 2019-09-04 18:37 | Infectious Diseases Prog Note ---
Assessment/Plan Assessment/Plan Full consult dictated: A) 1) acute pancreatitis with phlegmon 2) ? etiology 3) possible sepsis, leukocytosis, fevers 4) pmh o/w negative P) 1) meropenem 2) monitor labs, wbc 3) GI f/u 4) d/w patient and 5) thank you Subjective Allergies: Coded Allergies: No Known Allergies (Unverified , 09/02/19) Objective Vital Signs Last 24 Hour Vital Signs Date Time Temp Pulse Resp B/P (MAP) Pulse Ox O2 Delivery O2 Flow Rate FiO2 09/04/19 16:45 98.5 126 95 09/04/19 16:00 101.0 122 20 120/77 (91) 93 09/04/19 13:30 98.0 09/04/19 12:00 99.9 115 20 119/72 (88) 96 09/04/19 09:00 Room Air 09/04/19 08:00 99.0 106 19 105/72 (83) 94 09/04/19 04:54 99.4 09/04/19 04:54 99.4 09/04/19 04:00 100.9 107 19 113/70 (84) 99 09/04/19 00:00 99.5 108 20 115/78 (90) 97 09/03/19 21:00 Room Air 09/03/19 20:00 99.6 110 21 110/71 (84) 98 Height (Feet): 5 Height (Inches): 7.00 Weight (Pounds): 157 Laboratory Tests Test 09/04/19 05:35 White Blood Count 16.9 K/UL (4.8-10.8) H Red Blood Count 5.18 M/UL (4.70-6.10) Hemoglobin 14.3 G/DL (14.2-18.0) Hematocrit 42.0 % (42.0-52.0) Mean Corpuscular Volume 81 FL (80-99) Mean Corpuscular Hemoglobin 27.5 PG (27.0-31.0) Mean Corpuscular Hemoglobin Concent 33.9 G/DL (32.0-36.0) Red Cell Distribution Width 11.8 % (11.6-14.8) Platelet Count 159 K/UL (150-450) Mean Platelet Volume 6.8 FL (6.5-10.1) Neutrophils (%) (Auto) % (45.0-75.0) Lymphocytes (%) (Auto) % (20.0-45.0) Monocytes (%) (Auto) % (1.0-10.0) Eosinophils (%) (Auto) % (0.0-3.0) Basophils (%) (Auto) % (0.0-2.0) Differential Total Cells Counted 100 Neutrophils % (Manual) 81 % (45-75) H Lymphocytes % (Manual) 9 % (20-45) L Monocytes % (Manual) 9 % (1-10) Eosinophils % (Manual) 1 % (0-3) Basophils % (Manual) 0 % (0-2) Band Neutrophils 0 % (0-8) Platelet Estimate Adequate Platelet Morphology Normal Red Blood Cell Morphology Normal Sodium Level 139 MMOL/L (136-145) Potassium Level 3.4 MMOL/L (3.5-5.1) L Chloride Level 103 MMOL/L (98-107) Carbon Dioxide Level 27 MMOL/L (21-32) Anion Gap 9 mmol/L (5-15) Blood Urea Nitrogen 11 mg/dL (7-18) Creatinine 1.0 MG/DL (0.55-1.30) Estimat Glomerular Filtration Rate > 60 mL/min (>60) Glucose Level 102 MG/DL (74-106) Calcium Level 8.4 MG/DL (8.5-10.1) L Total Bilirubin 1.0 MG/DL (0.2-1.0) Aspartate Amino Transf (AST/SGOT) 16 U/L (15-37) Alanine Aminotransferase (ALT/SGPT) 19 U/L (12-78) Alkaline Phosphatase 51 U/L (46-116) Total Protein 6.3 G/DL (6.4-8.2) L Albumin 2.8 G/DL (3.4-5.0) L Globulin 3.5 g/dL Albumin/Globulin Ratio 0.8 (1.0-2.7) L Lipase 1497 U/L (73-393) H Hepatitis A IgM Antibody Pending Current Medications Medications (Trade) Dose Ordered Sig/Jessica Route PRN Reason Start Time Stop Time Status Last Admin Dose Admin Acetaminophen (Tylenol) 650 mg Q4H PRN ORAL Mild Pain/Temp > 100.5 09/03/19 13:45 10/03/19 13:44 09/04/19 13:36 Meropenem 1 gm/ Sodium Chloride 100 ml @ 200 mls/hr Q8HR IVPB 09/04/19 22:00 09/09/19 21:59 Morphine Sulfate (Morphine Sulfate) 2 mg Q3H PRN IVP For Pain 09/03/19 11:15 09/10/19 11:14 09/04/19 13:54 Ondansetron HCl (Zofran) 4 mg Q6H PRN IVP Nausea & Vomiting 09/02/19 21:00 10/02/19 20:59 09/03/19 20:26 Sodium Chloride 1,000 ml @ 75 mls/hr [id number] IV 09/04/19 12:00 10/02/19 11:59 09/04/19 11:31 Jaja Moreira MD Sep 04, 2019 18:37
--- NOTE | 2019-09-04 18:45 | NUR ---
NURSE NOTES: Patient heart rate 110-126, asymptomatic, no dizziness/SOB/chest pain. Will continue to monitor.
--- NOTE | 2019-09-04 19:31 | NUR ---
NURSE NOTES: Received report from Natty SHAFER. Rounding is done. Patient is in bed, and a/o x 4. Patient c/o pain 6/10 and will give medication as ordered and will continue to monitor. Friend is at bedside. Breathing is even and unlabored. IV site is intact and IV fluid is running. Bed is on alarm, locked, and lowest position. Call light within reach. Will continue to monitor.
--- NOTE | 2019-09-04 20:30 | Consultation ---
DATE OF CONSULTATION: 09/04/2019 INFECTIOUS DISEASE CONSULTATION CONSULTING PHYSICIAN: Jaja Moreira M.D. ATTENDING PHYSICIAN: Vince De La Fuetne M.D. REFERRING PHYSICIAN: Vince De La Fuente M.D. REASON FOR CONSULTATION: Possible sepsis, fevers, leukocytosis, and pancreatitis. CHIEF COMPLAINT: The patient's chief complaint coming in to the hospital is abdominal pain, pancreatitis, sepsis, elevated white count, and fevers. HISTORY OF PRESENT ILLNESS: This is a very pleasant 38-year-old male, who comes in to [facility] with acute abdominal pain he said which started Sunday. The patient does not have any history of alcohol abuse. The patient was noted to have a lipase of 10,535. Imaging of the abdomen showed the following. A CT scan of the abdomen and pelvis showed enlarged pancreas with peripancreatic fluid and intraperitoneal fluid. No discrete fluid collection. MRI of the abdomen showed the following. It showed no evidence of gallstones and it did show peripancreatic phlegmon. The patient was noted to have a white count of 17.1 and has been febrile. Infectious Disease consultation was requested for antibiotic management. The patient is on meropenem. MAR was noted. Orders were noted. Notes and records were reviewed. REVIEW OF SYSTEMS: CONSTITUTIONAL: Main issue is the abdominal pain. Currently, no nausea, vomiting, or diarrhea. He does have fevers, but no chills. HEAD AND NECK: No thrush or dysphagia, headache, or neck stiffness. CARDIAC: No chest pain. GASTROINTESTINAL: Abdominal pain. No nausea, vomiting, or diarrhea. GENITOURINARY: No dysuria or frequency. PULMONARY: No shortness of breath. SKIN: No rash. NEUROLOGIC: No seizures. PAST MEDICAL HISTORY: The patient's past medical history is otherwise negative. No history of diabetes and hypertension mentioned in the records. MEDICATIONS: Upon reviewing the MAR, the patient is on the following medications. He is on meropenem, IV fluids, acetaminophen, morphine, Zofran oral as needed. Meropenem is changed to 1 gram intravenous every 8 hours. It was 500 mg intravenous every 8 hours. Outside medications I believe were none. ALLERGIES: No known drug allergies. SOCIAL HISTORY: Negative for smoking, alcohol, or drug abuse. FAMILY HISTORY: Noncontributory. PHYSICAL EXAMINATION: VITAL SIGNS: Temperature 101.0, pulse rate 122, respiratory rate 20, blood pressure 122/77, and saturation 93% to 95%. GENERAL: Alert and responsive, in no acute distress. HEAD AND NECK: Oral exam, no thrush. Eye exam, no icterus. Normocephalic. Neck is supple. HEART: Regular rate and rhythm. No gallop or murmur. He also has tachycardia. ABDOMEN: Soft. Positive bowel sounds. Some tenderness. No rebound. LUNGS: Clear bilaterally. No rhonchi or rales. SKIN: No rash. MUSCULOSKELETAL: No effusion. Legs are without cellulitis. PERIPHERAL VASCULAR: No gangrene. : No Magana. NEUROLOGIC: Alert and oriented x3. Nonfocal. LINE SITES: Without phlebitis. LABORATORY DATA: Laboratory data is as follows. White count 16.9 and hemoglobin 14.3. White count 2 days ago was 17.1. Creatinine 1.0. Lipase on admission was 10,535. Amylase on admission was 972. Lipase today is 1497. Urinalysis negative. Hepatitis antibody total for hepatitis A is positive. Hepatitis C negative. Hepatitis B is pending. IgM hepatitis is pending. Blood cultures are pending. IMAGING: Chest x-ray shows no acute process. CT scan of the abdomen and pelvis again showed enlarged pancreas and peripancreatic fluid. MRI of the abdomen showed no gallstones. It did show peripancreatic phlegmon. Reports were noted of the imaging. ASSESSMENT AND PLAN: 1. The patient has acute pancreatitis with phlegmon. Etiology of pancreatitis is unclear. The patient has no history of alcohol abuse and his MRI shows no gallstones. The patient has phlegmon and has likely severe pancreatitis. The patient also had elevated white count, fevers, and possible sepsis. No other source of sepsis. The UA is negative. Blood cultures are pending. Chest x-ray is unremarkable. Certainly, acute pancreatitis in of itself can cause elevated white count, fevers, and SIRS criteria. At this time, we will continue meropenem because of the severity of pancreatitis, rule out underlying necrotizing pancreatitis, however, this is not described in the imaging. Continue meropenem. Monitor the patient clinically. It is day #2 of antibiotics and monitor the lipase and amylase. GI is following. Follow up on blood culture results because of fevers and leukocytosis. Continue supportive measures for the pancreatitis. Workup again per GI for the etiology of pancreatitis. Continue meropenem for now for acute pancreatitis, possible sepsis, leukocytosis, and fevers. 2. No other significant past medical history. 3. No known allergies. 4. Social history is negative. 5. Family history is noncontributory. 6. MAR is noted. 7. Case was discussed with RN. 8. Case was discussed with the patient and his . 9. Continue treatment per primary consultants. 10. Orders were noted and entered. Jaja Moreira M.D. DR: GWENDOLYN JOB#: [id number] CC:
--- NOTE | 2019-09-04 22:02 | NUR ---
NURSE NOTES: Patient had fever, 101.8 F and Given Tylenol as ordered. Will continue to monitor.
[2019-09-05] VITALS: BP 114/82
[2019-09-05 04:00] VITALS: BP 115/82
[2019-09-05 07:01] LABS: HEMOGLOBIN 13.7 G/DL (14.2-18.0); MEAN CORPUSCULAR VOLUME 81 FL (80-99); PLATELET COUNT 151 K/UL (150-450); RED BLOOD COUNT 4.93 M/UL (4.70-6.10); RED CELL DISTRIBUTION WIDTH 11.9 % (11.6-14.8); WHITE BLOOD COUNT 15.6 K/UL (4.8-10.8)
--- NOTE | 2019-09-05 07:20 | NUR ---
NURSE NOTES: Report received from HOLLIS Luke, rounds made. Patient resting in semi-fowlers position, in bed. Upper abdominal owen 5/10, will medicate as ordered. IVF (NS at 75 ml/hr) infusing to LAC, site asymptomatic. No SOB, NV. Call light in reach, bed in lowest position, will continue to monitor.
--- NOTE | 2019-09-05 07:23 | NUR ---
HAND-OFF: Report given to Natty SHAFER. Patient in stable condition.
[2019-09-05 07:47] LABS: ANION GAP 14 mmol/L (5-15); BLOOD UREA NITROGEN 11 mg/dL (7-18); CALCIUM 8.5 MG/DL (8.5-10.1); CARBON DIOXIDE 22 MMOL/L (21-32); CHLORIDE 103 MMOL/L (98-107); CHOLESTEROL 127 MG/DL (< 200); HDL CHOLESTEROL 25 MG/DL (40-60); POTASSIUM 3.7 MMOL/L (3.5-5.1); SODIUM 138 MMOL/L (136-145); TRIGLYCERIDES 66 MG/DL (30-150)
[2019-09-05 08:00] VITALS: BP 123/87
[2019-09-05] MEDS: Morphine Sulfate 2mg/ml Inj(IV/IM USE ONLY) IVP PRN ×4 (08:24→20:54)
--- NOTE | 2019-09-05 10:48 | GI Progress Note ---
Assessment/Plan Problems: (1) Abdominal pain ICD Codes: R10.9 - Unspecified abdominal pain SNOMED: 38947968 (2) Hepatitis A antibody positive ICD Codes: R76.8 - Other specified abnormal immunological findings in serum SNOMED: 290970785 (3) Pancreatitis ICD Codes: K85.90 - Acute pancreatitis without necrosis or infection, unspecified SNOMED: 43915581 Status: stable, progressing, unchanged Status Narrative Discussed with Dr. Clarke. Assessment/Plan Abdominal pelvis CT noted with nonnecrotizing acute pancreatitis MRCP reviewed U tox negative lipase levels improving, now normal lipid panel to rule out any hypertriglyceridemia >> negative f/u Hep A IgM given positive Ab >> negative, previous exposure trial CLD, advance as tolerated maintain IVF @ 75cc/hr add pancrelipase Pain management PPI IV cont meropenem per ID Repeat labs for tomorrow We will follow on a daily basis with any additional recommendations The patient was seen and examined at bedside and all new and available data was reviewed in the patients chart. I agree with the above findings, impression and plan. (Patient seen earlier today. Signature stamp does not reflect patient encounter time.). - Celestine Clarke MD Subjective Subjective abdominal pain improved able to ambulate Objective Last 24 Hour Vital Signs Date Time Temp Pulse Resp B/P (MAP) Pulse Ox O2 Delivery O2 Flow Rate FiO2 09/05/19 08:00 98.8 112 18 123/87 (99) 97 09/05/19 04:00 99.4 102 17 115/82 (93) 95 09/05/19 00:00 99.8 113 19 114/82 (93) 93 09/04/19 22:31 99.8 09/04/19 22:02 101.8 113 21 122/85 (97) 93 09/04/19 21:00 Room Air 09/04/19 20:00 97.9 101 19 113/84 (94) 95 09/04/19 18:45 110 09/04/19 16:45 98.5 126 95 09/04/19 16:00 101.0 122 20 120/77 (91) 93 09/04/19 13:30 98.0 09/04/19 12:00 99.9 115 20 119/72 (88) 96 Intake and Output 09/04/19 09/05/19 19:00 07:00 Intake Total 2175 ml 1165 ml Balance 2175 ml 1165 ml Intake Oral 240 ml IV Total 975 ml 925 ml Other 1200 ml Laboratory Tests Test 09/05/19 05:50 White Blood Count 15.6 K/UL (4.8-10.8) H Red Blood Count 4.93 M/UL (4.70-6.10) Hemoglobin 13.7 G/DL (14.2-18.0) L Hematocrit 40.0 % (42.0-52.0) L Mean Corpuscular Volume 81 FL (80-99) Mean Corpuscular Hemoglobin 27.7 PG (27.0-31.0) Mean Corpuscular Hemoglobin Concent 34.2 G/DL (32.0-36.0) Red Cell Distribution Width 11.9 % (11.6-14.8) Platelet Count 151 K/UL (150-450) Mean Platelet Volume 6.6 FL (6.5-10.1) Neutrophils (%) (Auto) % (45.0-75.0) Lymphocytes (%) (Auto) % (20.0-45.0) Monocytes (%) (Auto) % (1.0-10.0) Eosinophils (%) (Auto) % (0.0-3.0) Basophils (%) (Auto) % (0.0-2.0) Differential Total Cells Counted 100 Neutrophils % (Manual) 85 % (45-75) H Lymphocytes % (Manual) 5 % (20-45) L Monocytes % (Manual) 7 % (1-10) Eosinophils % (Manual) 3 % (0-3) Basophils % (Manual) 0 % (0-2) Band Neutrophils 0 % (0-8) Platelet Estimate Adequate Platelet Morphology Normal Red Blood Cell Morphology Normal Sodium Level 138 MMOL/L (136-145) Potassium Level 3.7 MMOL/L (3.5-5.1) Chloride Level 103 MMOL/L (98-107) Carbon Dioxide Level 22 MMOL/L (21-32) Anion Gap 14 mmol/L (5-15) Blood Urea Nitrogen 11 mg/dL (7-18) Creatinine 1.0 MG/DL (0.55-1.30) Estimat Glomerular Filtration Rate > 60 mL/min (>60) Glucose Level 119 MG/DL (74-106) H Calcium Level 8.5 MG/DL (8.5-10.1) Triglycerides Level 66 MG/DL (30-150) Cholesterol Level 127 MG/DL (< 200) LDL Cholesterol 84 mg/dL (<100) HDL Cholesterol 25 MG/DL (40-60) L Cholesterol/HDL Ratio 5.1 (3.3-4.4) H Lipase 337 U/L (73-393) Height (Feet): 5 Height (Inches): 7.00 Weight (Pounds): 157 General Appearance: WD/WN, no apparent distress, alert Cardiovascular: normal rate Respiratory/Chest: normal breath sounds, no respiratory distress Abdominal Exam: normal bowel sounds, non tender, soft Extremities: normal range of motion, non-tender Aguilar Madison NP Sep 05, 2019 10:48
--- NOTE | 2019-09-05 10:54 | NUR ---
RD ASSESSMENT & RECOMMENDATIONS SEE CARE ACTIVITY FOR COMPLETE ASSESSMENT DAILY ESTIMATED NEEDS: Needs based on Pancreatitis 71.4kg 25-30 kcals/kg 7965-3034 total kcals 1-1.5 g protein/kg 71-107 g total protein 25-30 mL/kg 3328-0782 total fluid mLs NUTRITION DIAGNOSIS: Altered nutrition related lab values r/t pancreatitis as evidenced by elev lipase (93513 on adm-> now wnl), elev amylase (972, not updated), now w/ Hep A antibody (+). CURRENT DIET: CLD PO DIET RECOMMENDATIONS: Advance as tolerated to LOW FAT diet ADDITIONAL RECOMMENDATIONS: 1) Add Ensure Clear TID w/ meals 2) Obtain a standing weight as able 3) Monitor tolerance to diet, ability to advance, need for TPN?
[2019-09-05 12:00] VITALS: BP 117/75
--- NOTE | 2019-09-05 12:30 | NUR ---
NURSE NOTES: All lab results (CBC, BMP, Lipid, Lipase) reviewed with patient. Dr. De La Fuente notified of temperature 101.1, blood cultures negative for 24 hours, WBC 15.6 and HR 110-122, patient requesting sleeping pill for bedtime. Encouraged IS.
[2019-09-05 16:00] VITALS: BP 111/77
--- NOTE | 2019-09-05 16:18 | NUR ---
CASE MANAGEMENT: REVIEW 09/05/19 SI: NONNECROTIZING ACUTE PANCREATITIS . HEPATITIS A (+) . ABDOMINAL PAIN 101.1 110 16 117/75 94% ROOM AIR WBC 15.6 HDL 25 HEP A (+) IS: IV MEROPENEM Q8HR IV NS @75ML/HR IV MORPHINE Q3HR/PRN IV ZOFRAN Q6HR/PRN \: 3E MED/SURG UNIT DCP: PATIENT IS FROM HOME DIET: CHECK LIPASE LEVEL IN AM CONT CLEAR LIQ DIET
[2019-09-05] MEDS: Pancrelipase Dr Cap ORAL SCH (16:45)
[2019-09-05] MEDS ORDERED: Tubing IV Secondary IV ONE (18:29)
--- NOTE | 2019-09-05 18:30 | NUR ---
NURSE NOTES: Encouraged ambulation in halls throughout shift, patient up x3, tolerated well.
--- NOTE | 2019-09-05 18:35 | Pulmonology Progress Note ---
Assessment/Plan Assessment/Plan IMPRESSION: Acute pancreatitis, etiology uncertain. DISCUSSION: continue IV fluids, IV antiemetics, morphine for pain control. seen by gastroenterology and ID Noted hepatitis A antibody positive. MRCP shows significant pancreatitis Will continue on clear liquids Will proceed slowly given extensive pancreatitis Vince De La Fuente M.D. Subjective Interval Events: Feeling better Constitutional: Reports: no symptoms HEENT: Repors: no symptoms Respiratory: Reports: no symptoms Cardiovascular: Reports: no symptoms Gastrointestinal/Abdominal: Reports: no symptoms Genitourinary: Reports: no symptoms Allergies: Coded Allergies: No Known Allergies (Unverified , 09/02/19) Objective Last 24 Hour Vital Signs Date Time Temp Pulse Resp B/P (MAP) Pulse Ox O2 Delivery O2 Flow Rate FiO2 09/05/19 16:00 98.1 108 16 111/77 (88) 95 09/05/19 12:26 100.6 09/05/19 12:00 101.1 110 16 117/75 (89) 94 09/05/19 09:00 Room Air 09/05/19 08:00 98.8 112 18 123/87 (99) 97 09/05/19 04:00 99.4 102 17 115/82 (93) 95 09/05/19 00:00 99.8 113 19 114/82 (93) 93 09/04/19 22:02 101.8 113 21 122/85 (97) 93 09/04/19 21:00 Room Air 09/04/19 20:00 97.9 101 19 113/84 (94) 95 09/04/19 18:45 110 Intake and Output 09/04/19 09/05/19 19:00 07:00 Intake Total 2175 ml 1165 ml Balance 2175 ml 1165 ml Intake Oral 240 ml IV Total 975 ml 925 ml Other 1200 ml General Appearance: no acute distress HEENT: normocephalic Respiratory/Chest: chest wall non-tender, lungs clear Cardiovascular: normal peripheral pulses Abdomen: normal bowel sounds Microbiology Date/Time Source Procedure Growth Status 09/03/19 17:35 Blood Blood Culture - Preliminary NO GROWTH AFTER 24 HOURS Resulted 09/03/19 17:20 Blood Blood Culture - Preliminary NO GROWTH AFTER 24 HOURS Resulted Laboratory Tests 09/05/19 05:50: White Blood Count 15.6H, Red Blood Count 4.93, Hemoglobin 13.7L, Hematocrit 40.0L, Mean Corpuscular Volume 81, Mean Corpuscular Hemoglobin 27.7, Mean Corpuscular Hemoglobin Concent 34.2, Red Cell Distribution Width 11.9, Platelet Count 151, Mean Platelet Volume 6.6, Neutrophils (%) (Auto) , Lymphocytes (%) ( Auto) , Monocytes (%) (Auto) , Eosinophils (%) (Auto) , Basophils (%) (Auto) , Differential Total Cells Counted 100, Neutrophils % (Manual) 85H, Lymphocytes % (Manual) 5L, Monocytes % (Manual) 7, Eosinophils % (Manual) 3, Basophils % ( Manual) 0, Band Neutrophils 0, Platelet Estimate Adequate, Platelet Morphology Normal, Red Blood Cell Morphology Normal, Sodium Level 138, Potassium Level 3.7 , Chloride Level 103, Carbon Dioxide Level 22, Anion Gap 14, Blood Urea Nitrogen 11, Creatinine 1.0, Estimat Glomerular Filtration Rate > 60, Glucose Level 119H, Calcium Level 8.5, Triglycerides Level 66, Cholesterol Level 127, LDL Cholesterol 84, HDL Cholesterol 25L, Cholesterol/HDL Ratio 5.1H, Lipase 337 Current Medications Medications (Trade) Dose Ordered Sig/Jessica Route PRN Reason Start Time Stop Time Status Last Admin Dose Admin Acetaminophen (Tylenol) 650 mg Q4H PRN ORAL Mild Pain/Temp > 100.5 09/03/19 13:45 10/03/19 13:44 09/05/19 11:56 Amylase/Lipase/ Protease (Zenpep) 1 ea TIAC ORAL 09/05/19 16:30 10/05/19 16:29 09/05/19 16:45 Meropenem 1 gm/ Sodium Chloride 100 ml @ 200 mls/hr Q8HR IVPB 09/04/19 22:00 09/09/19 21:59 09/05/19 14:44 Morphine Sulfate (Morphine Sulfate) 2 mg Q3H PRN IVP For Pain 09/03/19 11:15 09/10/19 11:14 09/05/19 16:45 Ondansetron HCl (Zofran) 4 mg Q6H PRN IVP Nausea & Vomiting 09/02/19 21:00 10/02/19 20:59 09/03/19 20:26 Sodium Chloride 1,000 ml @ 75 mls/hr [id number] IV 09/04/19 12:00 10/02/19 11:59 09/05/19 11:42 Vince De La Fuente MD Sep 05, 2019 18:35
--- NOTE | 2019-09-05 19:31 | NUR ---
HAND-OFF: Report given to Li SHAFER, rounds made. Patient in stable condition.
[2019-09-05 20:00] VITALS: BP 118/82
[2019-09-06] VITALS: BP 114/77
[2019-09-06 04:00] VITALS: BP 119/84
[2019-09-06 06:05] LABS: BASOPHILS % (AUTO) 0.5 % (0.0-2.0); EOSINOPHILS % (AUTO) 1.5 % (0.0-3.0); HEMATOCRIT 38.8 % (42.0-52.0); HEMOGLOBIN 13.2 G/DL (14.2-18.0); LYMPHOCYTES % (AUTO) 9.5 % (20.0-45.0); MEAN CORPUSCULAR VOLUME 82 FL (80-99); MONOCYTES % (AUTO) 8.4 % (1.0-10.0); NEUTROPHILS % (AUTO) 80.1 % (45.0-75.0); PLATELET COUNT 182 K/UL (150-450); RED BLOOD COUNT 4.76 M/UL (4.70-6.10); WHITE BLOOD COUNT 14.7 K/UL (4.8-10.8)
[2019-09-06] MEDS: Pancrelipase Dr Cap ORAL SCH ×3 (06:14→17:19)
[2019-09-06] MEDS: Morphine Sulfate 2mg/ml Inj(IV/IM USE ONLY) IVP PRN ×2 (06:20→10:03)
[2019-09-06 06:34] LABS: ANION GAP 11 mmol/L (5-15); BLOOD UREA NITROGEN 11 mg/dL (7-18); CALCIUM 8.6 MG/DL (8.5-10.1); CARBON DIOXIDE 24 MMOL/L (21-32); CHLORIDE 103 MMOL/L (98-107); POTASSIUM 3.5 MMOL/L (3.5-5.1); SODIUM 138 MMOL/L (136-145)
--- NOTE | 2019-09-06 07:09 | General Progress Note ---
Assessment/Plan Status: stable, progressing, unchanged Assessment/Plan: Assessment/Plan Problems: (1) Abdominal pain (2) Pancreatitis Assessment/Plan Abdominal pelvis CT noted with nonnecrotizing acute pancreatitis MRCP reviewed U tox negative lipase levels improving, now normal lipid panel to rule out any hypertriglyceridemia >> negative trial CLD, advance as tolerated maintain IVF @ 75cc/hr pancrelipase Pain management PPI IV cont meropenem per ID Repeat labs for tomorrow We will follow on a daily basis with any additional recommendations Subjective ROS Limited/Unobtainable: Yes Allergies: Coded Allergies: No Known Allergies (Unverified , 09/02/19) Objective Last 24 Hour Vital Signs Date Time Temp Pulse Resp B/P (MAP) Pulse Ox O2 Delivery O2 Flow Rate FiO2 09/06/19 04:00 98.7 103 16 119/84 (96) 96 09/06/19 00:00 98.5 106 20 114/77 (89) 95 09/05/19 22:46 98.7 09/05/19 21:00 Room Air 09/05/19 20:00 100.1 117 18 118/82 (94) 98 09/05/19 16:00 98.1 108 16 111/77 (88) 95 09/05/19 12:00 101.1 110 16 117/75 (89) 94 09/05/19 09:00 Room Air 09/05/19 08:00 98.8 112 18 123/87 (99) 97 Intake and Output 09/05/19 09/06/19 19:00 07:00 Intake Total 2112 ml 875 ml Balance 2112 ml 875 ml Intake Oral 1362 ml 800 ml IV Total 750 ml 75 ml # Voids 3 4 # Bowel Movements 2 1 Laboratory Tests 09/06/19 04:45: White Blood Count 14.7H, Red Blood Count 4.76, Hemoglobin 13.2L, Hematocrit 38.8L, Mean Corpuscular Volume 82, Mean Corpuscular Hemoglobin 27.6, Mean Corpuscular Hemoglobin Concent 33.9, Red Cell Distribution Width 12.0, Platelet Count 182, Mean Platelet Volume 6.2L, Neutrophils (%) (Auto) 80.1H, Lymphocytes (%) (Auto) 9.5L, Monocytes (%) (Auto) 8.4, Eosinophils (%) (Auto) 1.5, Basophils (%) (Auto) 0.5, Sodium Level 138, Potassium Level 3.5, Chloride Level 103, Carbon Dioxide Level 24, Anion Gap 11, Blood Urea Nitrogen 11, Creatinine 1.0, Estimat Glomerular Filtration Rate > 60, Glucose Level 100, Calcium Level 8.6 Height (Feet): 5 Height (Inches): 7.00 Weight (Pounds): 157 General Appearance: alert EENT: normal ENT inspection Neck: supple Cardiovascular: normal peripheral pulses Respiratory/Chest: decreased breath sounds Abdomen: soft, hypoactive bowel sounds, tender Extremities: non-tender Celestine Clarke MD Sep 06, 2019 07:09
--- NOTE | 2019-09-06 07:50 | NUR ---
NURSE NOTES: Patient is in bed awake and able to verbalize needs. Stable. Denies severe pain or SOB. Pain medication administration schedule discussed with patient, verbalized understanding. Patient instructed to use call light for assistance, verbalized understanding. Patient is in bed in locked and lowest position with call light within reach. All needs met at this time. Will continue to monitor.
--- NOTE | 2019-09-06 07:51 | NUR ---
HAND-OFF: Report given to HOLLIS Hernandez. Pt is awake and in stable condition. Plan of care endorsed.
[2019-09-06 08:00] VITALS: BP 116/79
[2019-09-06 12:00] VITALS: BP 113/77
--- NOTE | 2019-09-06 12:40 | Pulmonology Progress Note ---
Assessment/Plan Assessment/Plan IMPRESSION: Acute pancreatitis, etiology uncertain. DISCUSSION: continue IV fluids, IV antiemetics, morphine for pain control. seen by gastroenterology and ID Noted hepatitis A antibody positive. MRCP shows significant pancreatitis Will advance diet Will proceed slowly given extensive pancreatitis Outpt cholecystectomy Start Couch Vince De La Fuente M.D. Subjective Interval Events: Feeling better; still on CLD Constitutional: Reports: no symptoms HEENT: Repors: no symptoms Respiratory: Reports: no symptoms Cardiovascular: Reports: no symptoms Gastrointestinal/Abdominal: Reports: no symptoms Allergies: Coded Allergies: No Known Allergies (Unverified , 09/02/19) Objective Last 24 Hour Vital Signs Date Time Temp Pulse Resp B/P (MAP) Pulse Ox O2 Delivery O2 Flow Rate FiO2 09/06/19 12:19 100.8 09/06/19 09:00 Room Air 09/06/19 08:00 98.4 107 22 116/79 (91) 95 09/06/19 04:00 98.7 103 16 119/84 (96) 96 09/06/19 00:00 98.5 106 20 114/77 (89) 95 09/05/19 21:00 Room Air 09/05/19 20:00 100.1 117 18 118/82 (94) 98 09/05/19 16:00 98.1 108 16 111/77 (88) 95 Intake and Output 09/05/19 09/06/19 19:00 07:00 Intake Total 2112 ml 875 ml Balance 2112 ml 875 ml Intake Oral 1362 ml 800 ml IV Total 750 ml 75 ml # Voids 3 4 # Bowel Movements 2 1 General Appearance: no acute distress HEENT: normocephalic Respiratory/Chest: chest wall non-tender, normal breath sounds Cardiovascular: normal peripheral pulses Abdomen: normal bowel sounds Microbiology Date/Time Source Procedure Growth Status 09/03/19 17:35 Blood Blood Culture - Preliminary NO GROWTH AFTER 48 HOURS Resulted 09/03/19 17:20 Blood Blood Culture - Preliminary NO GROWTH AFTER 48 HOURS Resulted Laboratory Tests 09/06/19 04:45: White Blood Count 14.7H, Red Blood Count 4.76, Hemoglobin 13.2L, Hematocrit 38.8L, Mean Corpuscular Volume 82, Mean Corpuscular Hemoglobin 27.6, Mean Corpuscular Hemoglobin Concent 33.9, Red Cell Distribution Width 12.0, Platelet Count 182, Mean Platelet Volume 6.2L, Neutrophils (%) (Auto) 80.1H, Lymphocytes (%) (Auto) 9.5L, Monocytes (%) (Auto) 8.4, Eosinophils (%) (Auto) 1.5, Basophils (%) (Auto) 0.5, Sodium Level 138, Potassium Level 3.5, Chloride Level 103, Carbon Dioxide Level 24, Anion Gap 11, Blood Urea Nitrogen 11, Creatinine 1.0, Estimat Glomerular Filtration Rate > 60, Glucose Level 100, Calcium Level 8.6 Current Medications Medications (Trade) Dose Ordered Sig/Jessica Route PRN Reason Start Time Stop Time Status Last Admin Dose Admin Acetaminophen (Tylenol) 650 mg Q4H PRN ORAL Mild Pain/Temp > 100.5 09/03/19 13:45 10/03/19 13:44 09/06/19 11:49 Amylase/Lipase/ Protease (Zenpep) 1 ea TIAC ORAL 09/05/19 16:30 10/05/19 16:29 09/06/19 11:48 Meropenem 1 gm/ Sodium Chloride 100 ml @ 200 mls/hr Q8HR IVPB 09/04/19 22:00 09/09/19 21:59 09/06/19 06:14 Morphine Sulfate (Morphine Sulfate) 2 mg Q3H PRN IVP For Pain 09/03/19 11:15 09/10/19 11:14 09/06/19 10:03 Ondansetron HCl (Zofran) 4 mg Q6H PRN IVP Nausea & Vomiting 09/02/19 21:00 10/02/19 20:59 09/03/19 20:26 Vince De La Fuente MD Sep 06, 2019 12:40
[2019-09-06] MEDS ORDERED: Morphine Sulfate 2mg/ml Inj(IV/IM USE ONLY) IVP PRN (13:00)
--- NOTE | 2019-09-06 13:10 | Consultation ---
History of Present Illness General Date patient seen: Sep 06, 2019 Reason for Hospitalization: Abdominal Pain Present Illness HPI This is a very pleasant 38-year-old male otherwise healthy presents [facility] emergency department complaining of increased cruciate and cute onset worsening abdominal pain 10 out of 10 unable to move nausea vomiting with respiratory inspiratory discomfort. Was identified to have leukocytosis, abnormal labs, acute severe pancreatitis. Was admitted for medical care and management. Surgery called to evaluate and assist with care. Patient seen, patient evaluated, chart reviewed. Patient states that compared to admission he feels significantly better now. No nausea or vomiting. Tolerating his first full liquid meal and states is going down without pain or discomfort. MRI and CT were reviewed. Potential etiology is cholelithiasis. Long discussion was had with the patient regards to this and care plan. Allergies: Coded Allergies: No Known Allergies (Unverified , 09/02/19) Patient History History Provided By: Patient, Medical Record, PMD Healthcare decision maker Resuscitation status Full Code Advanced Directive on File No Past Medical/Surgical History Past Medical/Surgical History: (1) Pancreatitis (2) Abdominal pain (3) Hepatitis A antibody positive Review of Systems Review of Symptoms General ROS: no weight loss or fever Psychological ROS: no depression or mood changes, no memory loss Ophthalmic ROS: no visual changes or eye irritation ENT ROS: no nasal congestion, hearing loss, dizziness Allergy and Immunology ROS: no allergic symptoms or urticaria Hematological and Lymphatic ROS: no swollen glands, unusual bleeding or bruising Endocrine ROS: no polyuria, polydipsia, weight changes, temperature intolerance Respiratory ROS: no cough, shortness of breath, or wheezing Cardiovascular ROS: no chest pain or dyspnea on exertion Gastrointestinal ROS: abdominal pain, bright red blood in stool. Musculoskeletal ROS: no myalgias or arthralgias Neurological ROS: no TIA or stroke symptoms Dermatological ROS: no new or changing skin lesions, rashes or pruritis Physical Exam Physical Exam General appearance: alert, cooperative, no distress, appears stated age Head: Normocephalic, without obvious abnormality, atraumatic Eyes: conjunctivae/corneas clear. PERRL, EOM's intact. Fundi benign Throat: Lips, mucosa, and tongue normal. Teeth and gums normal Neck: supple, symmetrical, trachea midline, no adenopathy, thyroid: not enlarged, symmetric, no tenderness/mass/nodules, no carotid bruit and no JVD Lungs: clear to auscultation bilaterally Heart: regular rate and rhythm, S1, S2 normal, no murmur, click, rub or gallop Abdomen: soft, non-tender. Bowel sounds normal. No masses, no organomegaly Extremities: extremities normal, atraumatic, no cyanosis or edema Pulses: 2+ and symmetric Skin: Skin color, texture, turgor normal. No rashes or lesions Neurologic: Grossly normal Last 24 Hour Vital Signs Date Time Temp Pulse Resp B/P (MAP) Pulse Ox O2 Delivery O2 Flow Rate FiO2 09/06/19 12:19 100.8 09/06/19 12:00 101.2 109 20 113/77 (89) 94 09/06/19 09:00 Room Air 09/06/19 08:00 98.4 107 22 116/79 (91) 95 09/06/19 04:00 98.7 103 16 119/84 (96) 96 09/06/19 00:00 98.5 106 20 114/77 (89) 95 09/05/19 21:00 Room Air 09/05/19 20:00 100.1 117 18 118/82 (94) 98 09/05/19 16:00 98.1 108 16 111/77 (88) 95 Intake and Output 09/05/19 09/06/19 19:00 07:00 Intake Total 2112 ml 875 ml Balance 2112 ml 875 ml Intake Oral 1362 ml 800 ml IV Total 750 ml 75 ml # Voids 3 4 # Bowel Movements 2 1 Laboratory Tests Test 09/06/19 04:45 White Blood Count 14.7 K/UL (4.8-10.8) H Red Blood Count 4.76 M/UL (4.70-6.10) Hemoglobin 13.2 G/DL (14.2-18.0) L Hematocrit 38.8 % (42.0-52.0) L Mean Corpuscular Volume 82 FL (80-99) Mean Corpuscular Hemoglobin 27.6 PG (27.0-31.0) Mean Corpuscular Hemoglobin Concent 33.9 G/DL (32.0-36.0) Red Cell Distribution Width 12.0 % (11.6-14.8) Platelet Count 182 K/UL (150-450) Mean Platelet Volume 6.2 FL (6.5-10.1) L Neutrophils (%) (Auto) 80.1 % (45.0-75.0) H Lymphocytes (%) (Auto) 9.5 % (20.0-45.0) L Monocytes (%) (Auto) 8.4 % (1.0-10.0) Eosinophils (%) (Auto) 1.5 % (0.0-3.0) Basophils (%) (Auto) 0.5 % (0.0-2.0) Sodium Level 138 MMOL/L (136-145) Potassium Level 3.5 MMOL/L (3.5-5.1) Chloride Level 103 MMOL/L (98-107) Carbon Dioxide Level 24 MMOL/L (21-32) Anion Gap 11 mmol/L (5-15) Blood Urea Nitrogen 11 mg/dL (7-18) Creatinine 1.0 MG/DL (0.55-1.30) Estimat Glomerular Filtration Rate > 60 mL/min (>60) Glucose Level 100 MG/DL (74-106) Calcium Level 8.6 MG/DL (8.5-10.1) Height (Feet): 5 Height (Inches): 7.00 Weight (Pounds): 157 Medications Current Medications Medications (Trade) Dose Ordered Sig/Jessica Route PRN Reason Start Time Stop Time Status Last Admin Dose Admin Acetaminophen (Tylenol) 650 mg Q4H PRN ORAL Mild Pain/Temp > 100.5 09/03/19 13:45 10/03/19 13:44 09/06/19 11:49 Acetaminophen/ Hydrocodone Bitart ([place] 5/325) 1 tab Q6H PRN ORAL For Pain 09/06/19 12:45 09/13/19 12:44 Amylase/Lipase/ Protease (Zenpep) 1 ea TIAC ORAL 09/05/19 16:30 10/05/19 16:29 09/06/19 11:48 Meropenem 1 gm/ Sodium Chloride 100 ml @ 200 mls/hr Q8HR IVPB 09/04/19 22:00 09/09/19 21:59 09/06/19 06:14 Morphine Sulfate (Morphine Sulfate) 2 mg Q3H PRN IVP For Pain 09/06/19 13:00 09/10/19 11:14 Ondansetron HCl (Zofran) 4 mg Q6H PRN IVP Nausea & Vomiting 09/02/19 21:00 10/02/19 20:59 09/03/19 20:26 Assessment/Plan Problem List: (1) Pancreatitis Assessment & Plan: There is slight enlargement of the pancreas. There is peripancreatic fluid extending into the mesenteric root, transverse mesial colon, and along the anterior Gerota's fascia bilaterally and in the left paracolic gutter. There is also free intraperitoneal fluid within the pelvic mesenteric leaves and pelvic cul-de- sac. The pancreatic parenchyma enhances normally. There are no discrete walled off fluid collections demonstrated. The gallbladder demonstrates questionable sludge but no definite gallstones. The bile ducts are nondilated and there are no definite biliary ductal stones demonstrated. The liver, spleen, adrenals, right kidney are unremarkable. Left kidney demonstrates a small interpolar region cyst. No retroperitoneal or mesenteric mass or adenopathy. No pelvic mass or adenopathy. The included lung bases demonstrate dependent posterior atelectatic changes, are otherwise clear. The bones are unremarkable., Impression: Evidence of uncomplicated nonnecrotizing acute pancreatitis Incidental finding of small interpolar region left renal cyst, posterior dependent pulmonary atelectatic changes No gallstones are evident. No biliary ductal dilatation. No evidence of choledocholithiasis. Normal caliber pancreatic duct. There is edema of the pancreas and considerable fluid/phlegmon in the upper abdomen. Fluid/phlegmon is seen surrounding the pancreas, along the anterior Gerota's fascia bilaterally, within the bilateral paracolic gutters, along the left anterior Gerota's fascia, and surrounding both kidneys. Extent of fluid is more widespread than demonstrated on previous CT. There is also evidence of free intraperitoneal fluid over the liver and the spleen. No focal pancreatic abnormality is evident. The liver, pancreas, adrenals, kidneys are unremarkable. There are small bilateral pleural effusions which are not evident on the previous day's CT scan. Impression: No evidence of gallstones or choledocholithiasis or biliary ductal dilatation Evidence of peripancreatic phlegmon, appearing more widespread and extensive than on the prior exam, and development of free intraperitoneal fluid ICD Codes: K85.90 - Acute pancreatitis without necrosis or infection, unspecified SNOMED: [id number] (2) Abdominal pain Assessment & Plan: 38-year-old male with acute severe pancreatitis likely secondary to cholelithiasis. No EtOH history. No medication history. No recent travel or other events. Otherwise healthy. Slender young male. Initial nausea vomiting resolved. Pain significant improved now just a discomfort in the generalized mid abdominal area. Able to tolerate diet. No acute surgical intervention indicated or planned. I had a long discussion with patient regards to acute severe gallstone pancreatitis. I had a discussion with him regards to considerations for cholecystectomy. Given the severity of his acute event recommend waiting and cool down prior to cholecystectomy. We discussed the risk benefits and alternatives to early surgical intervention versus allowing inflammation to subside prior to elective cholecystectomy and after doing so patient states that he would like to wait for inflammation to resolve as well prior to cholecystectomy. He will monitor his diet closely. Care instructions and plan given to patient in detail. As patient's pain resolves he improves he is able to tolerate diet low-fat will recommend discharge with outpatient follow-up with his primary care physician for referral to surgeon within his network for considerations of elective cholecystectomy. Thank you for let me participate patient's care will follow with recommendations Trend labs Advance diet as tolerated Activity as tolerated ICD Codes: R10.9 - Unspecified abdominal pain SNOMED: [id number] Hernando Candelario Sep 06, 2019 13:10
[2019-09-06 15:58] VITALS: BP 125/84
--- NOTE | 2019-09-06 16:21 | Infectious Diseases Prog Note ---
Assessment/Plan Assessment/Plan A) 1) acute pancreatitis with phlegmon, necrotizing pancreatitis - imaging noted 2) ? etiology 3) possible sepsis, leukocytosis, fevers 4) pmh o/w negative, CHAUDHARY - hx migraines in past 5) fh-nc, sh-neg, mar noted, allergies - negative 6) d/w RN P) 1) meropenem -day # 3, consider discontinue abx soon if continues to improve and cultures remain negative 2) monitor labs, wbc, check final cultures, monitor fevers 3) GI f/u 4) d/w patient 5) supportive care, clinically improved, lipase is lower 6) will f/u Subjective Constitutional: Reports: fever, other - ambulating; Denies: fatigue HEENT: Denies: congestion Respiratory: Denies: shortness of breath Cardiovascular: Denies: chest pain, palpitations Gastrointestinal/Abdominal: Reports: other - less abdominal pain ; Denies: nausea, vomiting, diarrhea Genitourinary: Denies: dysuria Neurologic: Reports: headache - left sided headache Psychiatric: Denies: depression Skin: Denies: rash Hematologic: Denies: bleeding Musculoskeletal: Denies: pain Allergies: Coded Allergies: No Known Allergies (Unverified , 09/02/19) Objective Vital Signs Last 24 Hour Vital Signs Date Time Temp Pulse Resp B/P (MAP) Pulse Ox O2 Delivery O2 Flow Rate FiO2 09/06/19 15:58 99.2 99 20 125/84 (98) 95 09/06/19 12:19 100.8 09/06/19 12:00 101.2 109 20 113/77 (89) 94 09/06/19 09:00 Room Air 09/06/19 08:00 98.4 107 22 116/79 (91) 95 09/06/19 04:00 98.7 103 16 119/84 (96) 96 09/06/19 00:00 98.5 106 20 114/77 (89) 95 09/05/19 21:00 Room Air 09/05/19 20:00 100.1 117 18 118/82 (94) 98 Height (Feet): 5 Height (Inches): 7.00 Weight (Pounds): 157 General Appearance: no acute distress HEENT: normocephalic, atraumatic, anicteric, mucous membranes moist Respiratory/Chest: lungs clear, normal breath sounds, no accessory muscle use Cardiovascular: normal rate, regular rhythm, no gallop/murmur, no JVD Abdomen: normal bowel sounds, soft, non tender, no organomegaly, non distended Genitourinary: other - no johnson Extremities: no cyanosis Skin: no rash Neurologic/Psychiatric: kardex clerk II-XII grossly normal, alert, oriented x 3, responsive Lymphatic: no neck adenopathy Musculoskeletal: no effusion Objective MRI abdomen: Impression: No evidence of gallstones or choledocholithiasis or biliary ductal dilatation Evidence of peripancreatic phlegmon, appearing more widespread and extensive than on the prior exam, and development of free intraperitoneal fluid Bilateral pleural effusions, new since previous day's exam CT abdomen and pelvis: Impression: Evidence of uncomplicated nonnecrotizing acute pancreatitis Incidental finding of small interpolar region left renal cyst, posterior dependent pulmonary atelectatic changes Chest x-ray - nad, report noted Microbiology Date/Time Source Procedure Growth Status 09/03/19 17:35 Blood Blood Culture - Preliminary NO GROWTH AFTER 48 HOURS Resulted 09/03/19 17:20 Blood Blood Culture - Preliminary NO GROWTH AFTER 48 HOURS Resulted Laboratory Tests Test 09/06/19 04:45 White Blood Count 14.7 K/UL (4.8-10.8) H Red Blood Count 4.76 M/UL (4.70-6.10) Hemoglobin 13.2 G/DL (14.2-18.0) L Hematocrit 38.8 % (42.0-52.0) L Mean Corpuscular Volume 82 FL (80-99) Mean Corpuscular Hemoglobin 27.6 PG (27.0-31.0) Mean Corpuscular Hemoglobin Concent 33.9 G/DL (32.0-36.0) Red Cell Distribution Width 12.0 % (11.6-14.8) Platelet Count 182 K/UL (150-450) Mean Platelet Volume 6.2 FL (6.5-10.1) L Neutrophils (%) (Auto) 80.1 % (45.0-75.0) H Lymphocytes (%) (Auto) 9.5 % (20.0-45.0) L Monocytes (%) (Auto) 8.4 % (1.0-10.0) Eosinophils (%) (Auto) 1.5 % (0.0-3.0) Basophils (%) (Auto) 0.5 % (0.0-2.0) Sodium Level 138 MMOL/L (136-145) Potassium Level 3.5 MMOL/L (3.5-5.1) Chloride Level 103 MMOL/L (98-107) Carbon Dioxide Level 24 MMOL/L (21-32) Anion Gap 11 mmol/L (5-15) Blood Urea Nitrogen 11 mg/dL (7-18) Creatinine 1.0 MG/DL (0.55-1.30) Estimat Glomerular Filtration Rate > 60 mL/min (>60) Glucose Level 100 MG/DL (74-106) Calcium Level 8.6 MG/DL (8.5-10.1) Current Medications Medications (Trade) Dose Ordered Sig/Jessica Route PRN Reason Start Time Stop Time Status Last Admin Dose Admin Acetaminophen (Tylenol) 650 mg Q4H PRN ORAL Mild Pain/Temp > 100.5 09/03/19 13:45 10/03/19 13:44 09/06/19 11:49 Acetaminophen/ Hydrocodone Bitart ([place] 5/325) 1 tab Q6H PRN ORAL For Pain 09/06/19 12:45 09/13/19 12:44 Amylase/Lipase/ Protease (Zenpep) 1 ea TIAC ORAL 09/05/19 16:30 10/05/19 16:29 09/06/19 11:48 Meropenem 1 gm/ Sodium Chloride 100 ml @ 200 mls/hr Q8HR IVPB 09/04/19 22:00 09/09/19 21:59 09/06/19 13:35 Morphine Sulfate (Morphine Sulfate) 2 mg Q3H PRN IVP For Pain 09/06/19 13:00 09/10/19 11:14 Ondansetron HCl (Zofran) 4 mg Q6H PRN IVP Nausea & Vomiting 09/02/19 21:00 10/02/19 20:59 09/03/19 20:26 Jaja Moreira MD Sep 06, 2019 16:21
[2019-09-06] MEDS: HYDROcodone/Acetamin 5/325 tab ORAL PRN (17:20)
--- NOTE | 2019-09-06 19:30 | NUR ---
NURSE NOTES: abdominal US being done at bedside.
--- NOTE | 2019-09-06 19:35 | NUR ---
NURSE NOTES: Received report from HOLLIS Hernandez. Pt is awake, lying semi-partida's; comfortably resting. No signs of acute distress noted. Pt denies any pain at this time. AOx4; able to make needs known. Checked IV site; patent and flushed. No erythema, bleeding, or infiltration. Bed at lowest position. Brakes on. Siderails up x2. Call light within reach. Will continue to monitor.
--- NOTE | 2019-09-06 19:48 | NUR ---
HAND-OFF: Report given to Li SHAFER. patient is stable.
[2019-09-06 20:00] VITALS: BP 121/81
--- NOTE | 2019-09-06 20:45 | Diagnostic Imaging Report ---
EXAM: US Abdomen Complete CLINICAL HISTORY: ABD PAIN TECHNIQUE: Real-time ultrasound of the abdomen with image documentation. COMPARISON: None. FINDINGS: Liver: The liver measures 15.4 cm. No intrahepatic bile duct dilation. Gallbladder: No gallstones. The gallbladder wall is slightly thickened measuring 0.48 cm. Common bile duct: Common bile duct measures 0.4 cm. No stones. No dilation. Pancreas: Diffuse heterogeneity of the pancreas. There appears to be fluid surrounding the pancreatic head. Kidneys: Right kidney measures 10.5 x 4.7 x 5.1 cm. The left kidney measures 11.8 x 5.3 x 4.5 cm. Spleen: Spleen measures 8.3 cm. Aorta: The abdominal aorta is normal in caliber. No aneurysm. Inferior vena cava: Unremarkable. Pleural space: Small to moderate sized bilateral pleural effusions are noted. Depression: Bilateral pleural effusions. Heterogeneous pancreas with fluid surrounding the pancreatic head are uncertain etiology. No hydronephrosis. Common bile duct is normal in caliber. The gallbladder wall measures 0.48 cm and is diffusely thickened. No gallstones are noted. If there is concern for etiology such as chronic cholecystitis, HIDA imaging with CCK administration is advised to follow. CT imaging of the abdomen is advised to follow-up for further assessment of the pancreas. IMPRESSION: No acute findings in the abdomen.
--- NOTE | 2019-09-06 21:30 | NUR ---
NURSE NOTES: Pt's HR is 120 bpm. Pt reports 6/10 pain in the upper abdomen area. Pain medication is not due until at a later time. hides inspector made aware. Will continue to monitor.
[2019-09-07] VITALS: BP 114/78
[2019-09-07] MEDS: HYDROcodone/Acetamin 5/325 tab ORAL PRN (00:01)
--- NOTE | 2019-09-07 00:05 | NUR ---
NURSE NOTES: Pt's HR is now 118 bpm with the pt reporting 6/10 pain in the upper abdomen area and running a fever of 100.3. Unable to give fever production engine repairer at this time due to parameters. manager trading made aware. Rechecked pulse via apical. Apical pulse is also 118. Pt provided pain medication but will have to recheck temperature in 1-1.5 h.
--- NOTE | 2019-09-07 01:16 | NUR ---
NURSE NOTES: Rechecked pt's temperature and it's now 101.3 but HR is still 117 with no pain noted. senior consumer insights consultant made aware. Was given fever shaker washer. Will continue to monitor.
--- NOTE | 2019-09-07 02:30 | NUR ---
NURSE NOTES: Pt's temperature went down to 98. Will continue to monitor.
[2019-09-07 04:00] VITALS: BP 122/80
[2019-09-07 05:11] VITALS: BP 114/80
[2019-09-07] MEDS: Pancrelipase Dr Cap ORAL SCH (05:40)
--- NOTE | 2019-09-07 06:50 | General Progress Note ---
Assessment/Plan Status: stable, progressing, unchanged Assessment/Plan: Assessment/Plan Problems: (1) Abdominal pain (2) Pancreatitis Assessment/Plan Abdominal pelvis CT noted with nonnecrotizing acute pancreatitis MRCP reviewed U tox negative lipase levels improving, now normal lipid panel to rule out any hypertriglyceridemia >> negative low fat diet and ok to dc later today if tolerated spoke with his at length pancrelipase Pain management PPI IV cont meropenem per ID We will follow on a daily basis with any additional recommendations Subjective ROS Limited/Unobtainable: Yes Allergies: Coded Allergies: No Known Allergies (Unverified , 09/02/19) Objective Last 24 Hour Vital Signs Date Time Temp Pulse Resp B/P (MAP) Pulse Ox O2 Delivery O2 Flow Rate FiO2 09/07/19 05:11 98.7 88 15 114/80 (91) 98 09/07/19 04:00 99.8 102 18 122/80 (94) 95 09/07/19 02:00 100.1 09/07/19 01:45 100.1 09/07/19 00:00 101.3 117 20 114/78 (90) 92 09/06/19 21:00 Room Air 09/06/19 20:00 98.7 120 20 121/81 (94) 96 09/06/19 15:58 99.2 99 20 125/84 (98) 95 09/06/19 12:00 101.2 109 20 113/77 (89) 94 09/06/19 09:00 Room Air 09/06/19 08:00 98.4 107 22 116/79 (91) 95 Intake and Output 09/06/19 09/07/19 19:00 07:00 Intake Total 1000 ml 1900 ml Balance 1000 ml 1900 ml Intake Oral 1000 ml 1900 ml # Voids 3 Height (Feet): 5 Height (Inches): 7.00 Weight (Pounds): 157 General Appearance: alert EENT: normal ENT inspection Neck: supple Cardiovascular: normal rate Respiratory/Chest: lungs clear Abdomen: normal bowel sounds, non tender, soft Extremities: non-tender Celestine Clarke MD Sep 07, 2019 06:50
--- NOTE | 2019-09-07 07:52 | NUR ---
NURSE NOTES: Dr. Candelario made aware of pt's US of the abd resulted. Pt wants labs done for today and MD made aware. Awaiting MD callback and orders. Will endorse to the day RN.
[2019-09-07 08:00] VITALS: BP 116/79
--- NOTE | 2019-09-07 08:00 | NUR ---
NURSE NOTES: Patient is in bed awake and able to verbalize needs. Stable. Denies pain or SOB. Plan of care discussed with patient, verbalized understanding. Patient is in bed in locked and lowest position with call light within reach. All safety measures provided. Will continue to monitor.
[2019-09-07 08:42] LABS: EOSINOPHILS % (AUTO) 1.6 % (0.0-3.0); HEMATOCRIT 38.1 % (42.0-52.0); HEMOGLOBIN 13.1 G/DL (14.2-18.0); LYMPHOCYTES % (AUTO) 11.3 % (20.0-45.0); MEAN CORPUSCULAR VOLUME 81 FL (80-99); NEUTROPHILS % (AUTO) 79.2 % (45.0-75.0); PLATELET COUNT 204 K/UL (150-450); RED BLOOD COUNT 4.72 M/UL (4.70-6.10); RED CELL DISTRIBUTION WIDTH 11.7 % (11.6-14.8); WHITE BLOOD COUNT 14.7 K/UL (4.8-10.8)
[2019-09-07 08:59] LABS: ALANINE AMINOTRANSFERASE 78 U/L (12-78); ALBUMIN 2.5 G/DL (3.4-5.0); ALBUMIN/GLOBULIN RATIO 0.5 (1.0-2.7); ALKALINE PHOSPHATASE 120 U/L (46-116); ANION GAP 12 mmol/L (5-15); ASPARTATE AMINO TRANSFERASE 62 U/L (15-37); BLOOD UREA NITROGEN 13 mg/dL (7-18); CALCIUM 8.7 MG/DL (8.5-10.1); CARBON DIOXIDE 26 MMOL/L (21-32); CHLORIDE 100 MMOL/L (98-107); POTASSIUM 3.5 MMOL/L (3.5-5.1); SODIUM 138 MMOL/L (136-145)
[2019-09-07 10:06] LABS: ANION GAP 12 mmol/L (5-15); BLOOD UREA NITROGEN 12 mg/dL (7-18); CALCIUM 8.8 MG/DL (8.5-10.1); CARBON DIOXIDE 25 MMOL/L (21-32); CHLORIDE 100 MMOL/L (98-107); CREATININE 0.9 MG/DL (0.55-1.30); POTASSIUM 3.6 MMOL/L (3.5-5.1); SODIUM 137 MMOL/L (136-145)
[2019-09-07] MEDS ORDERED: NORCO 5-325 TA1 EACH ORAL (10:16)
--- NOTE | 2019-09-07 10:16 | Pulmonology Progress Note ---
Assessment/Plan Assessment/Plan IMPRESSION: Acute pancreatitis, etiology uncertain. Suspect due to cholelithiasis DISCUSSION: Off IV fluids seen by gastroenterology and ID Noted hepatitis A antibody positive. MRCP shows significant pancreatitis Outpt cholecystectomy Start [facility] home Vince De La Fuente M.D. Subjective Interval Events: Tolerated PO's Constitutional: Reports: no symptoms HEENT: Repors: no symptoms Respiratory: Reports: no symptoms Cardiovascular: Reports: no symptoms Gastrointestinal/Abdominal: Reports: no symptoms Allergies: Coded Allergies: No Known Allergies (Unverified , 09/02/19) Objective Last 24 Hour Vital Signs Date Time Temp Pulse Resp B/P (MAP) Pulse Ox O2 Delivery O2 Flow Rate FiO2 09/07/19 05:11 98.7 88 15 114/80 (91) 98 09/07/19 04:00 99.8 102 18 122/80 (94) 95 09/07/19 02:00 100.1 09/07/19 01:45 100.1 09/07/19 00:00 101.3 117 20 114/78 (90) 92 09/06/19 21:00 Room Air 09/06/19 20:00 98.7 120 20 121/81 (94) 96 09/06/19 15:58 99.2 99 20 125/84 (98) 95 09/06/19 12:00 101.2 109 20 113/77 (89) 94 Intake and Output 09/06/19 09/07/19 19:00 07:00 Intake Total 1000 ml 1900 ml Balance 1000 ml 1900 ml Intake Oral 1000 ml 1900 ml # Voids 3 General Appearance: no acute distress HEENT: normocephalic Respiratory/Chest: chest wall non-tender, lungs clear Cardiovascular: normal peripheral pulses Abdomen: normal bowel sounds Laboratory Tests 09/07/19 08:01: White Blood Count 14.7H, Red Blood Count 4.72, Hemoglobin 13.1L, Hematocrit 38.1L, Mean Corpuscular Volume 81, Mean Corpuscular Hemoglobin 27.7, Mean Corpuscular Hemoglobin Concent 34.3, Red Cell Distribution Width 11.7, Platelet Count 204, Mean Platelet Volume 6.1L, Neutrophils (%) (Auto) 79.2H, Lymphocytes (%) (Auto) 11.3L, Monocytes (%) (Auto) 7.0, Eosinophils (%) (Auto) 1.6, Basophils (%) (Auto) 1.0, Erythrocyte Sedimentation Rate 54H, Sodium Level 137, Potassium Level 3.6, Chloride Level 100, Carbon Dioxide Level 25, Anion Gap 12, Blood Urea Nitrogen 12, Creatinine 0.9, Estimat Glomerular Filtration Rate > 60 , Glucose Level 131H, Calcium Level 8.8, Total Bilirubin 1.0, Aspartate Amino Transf (AST/SGOT) 62H, Alanine Aminotransferase (ALT/SGPT) 78, Alkaline Phosphatase 120H, C-Reactive Protein, Quantitative 34.9H, Total Protein 7.1, Albumin 2.5L, Globulin 4.6, Albumin/Globulin Ratio 0.5L, Amylase Level 56, Lipase 285 Current Medications Medications (Trade) Dose Ordered Sig/Jessica Route PRN Reason Start Time Stop Time Status Last Admin Dose Admin Acetaminophen (Tylenol) 650 mg Q4H PRN ORAL Mild Pain/Temp > 100.5 09/03/19 13:45 10/03/19 13:44 09/07/19 01:15 Acetaminophen/ Hydrocodone Bitart ([place] 5/325) 1 tab Q6H PRN ORAL For Pain 09/06/19 12:45 09/13/19 12:44 09/07/19 00:01 Amylase/Lipase/ Protease (Zenpep) 1 ea TIAC ORAL 09/05/19 16:30 10/05/19 16:29 09/07/19 05:40 Meropenem 1 gm/ Sodium Chloride 100 ml @ 200 mls/hr Q8HR IVPB 09/04/19 22:00 09/09/19 21:59 09/07/19 05:40 Morphine Sulfate (Morphine Sulfate) 2 mg Q3H PRN IVP For Pain 09/06/19 13:00 09/10/19 11:14 Ondansetron HCl (Zofran) 4 mg Q6H PRN IVP Nausea & Vomiting 09/02/19 21:00 10/02/19 20:59 09/03/19 20:26 Vince De La Fuente MD Sep 07, 2019 10:16
--- NOTE | 2019-09-07 11:30 | NUR ---
NURSE NOTES: Patient discharged home as ordered. Stable. Denies pain or SOB. Patient was given thorough discharge instructions by RN and Dr. De La Fuente while rounding. Patient has prescriptions for pain medication and stated that he will take them to get filled. Patient's skin is c/d/i. Patient's questions and concerns addressed by RN. Patient has all belongings. Patient assisted downstairs without incident. No IV access. Armband removed.
--- NOTE | 2019-09-07 13:45 | Surgery Progress Note ---
Surgery Progress Note Subjective Additional Comments US reviewed labs noted d/c today Objective Last 24 Hour Vital Signs Date Time Temp Pulse Resp B/P (MAP) Pulse Ox O2 Delivery O2 Flow Rate FiO2 09/07/19 09:00 Room Air 09/07/19 08:00 98.4 107 22 116/79 (91) 95 09/07/19 05:11 98.7 88 15 114/80 (91) 98 09/07/19 04:00 99.8 102 18 122/80 (94) 95 09/07/19 02:00 100.1 09/07/19 01:45 100.1 09/07/19 00:00 101.3 117 20 114/78 (90) 92 09/06/19 21:00 Room Air 09/06/19 20:00 98.7 120 20 121/81 (94) 96 09/06/19 15:58 99.2 99 20 125/84 (98) 95 I&O Intake and Output 09/06/19 09/07/19 19:00 07:00 Intake Total 1000 ml 1900 ml Balance 1000 ml 1900 ml Intake Oral 1000 ml 1900 ml # Voids 3 Dressing: other Wound: other Drains: other Cardiovascular: RSR Respiratory: decreased breath sounds Abdomen: soft, present bowel sounds Extremities: no cyanosis Laboratory Tests Test 09/07/19 08:01 White Blood Count 14.7 K/UL (4.8-10.8) H Red Blood Count 4.72 M/UL (4.70-6.10) Hemoglobin 13.1 G/DL (14.2-18.0) L Hematocrit 38.1 % (42.0-52.0) L Mean Corpuscular Volume 81 FL (80-99) Mean Corpuscular Hemoglobin 27.7 PG (27.0-31.0) Mean Corpuscular Hemoglobin Concent 34.3 G/DL (32.0-36.0) Red Cell Distribution Width 11.7 % (11.6-14.8) Platelet Count 204 K/UL (150-450) Mean Platelet Volume 6.1 FL (6.5-10.1) L Neutrophils (%) (Auto) 79.2 % (45.0-75.0) H Lymphocytes (%) (Auto) 11.3 % (20.0-45.0) L Monocytes (%) (Auto) 7.0 % (1.0-10.0) Eosinophils (%) (Auto) 1.6 % (0.0-3.0) Basophils (%) (Auto) 1.0 % (0.0-2.0) Erythrocyte Sedimentation Rate 54 MM/HR (0-15) H Sodium Level 137 MMOL/L (136-145) Potassium Level 3.6 MMOL/L (3.5-5.1) Chloride Level 100 MMOL/L (98-107) Carbon Dioxide Level 25 MMOL/L (21-32) Anion Gap 12 mmol/L (5-15) Blood Urea Nitrogen 12 mg/dL (7-18) Creatinine 0.9 MG/DL (0.55-1.30) Estimat Glomerular Filtration Rate > 60 mL/min (>60) Glucose Level 131 MG/DL (74-106) H Calcium Level 8.8 MG/DL (8.5-10.1) Total Bilirubin 1.0 MG/DL (0.2-1.0) Aspartate Amino Transf (AST/SGOT) 62 U/L (15-37) H Alanine Aminotransferase (ALT/SGPT) 78 U/L (12-78) Alkaline Phosphatase 120 U/L (46-116) H C-Reactive Protein, Quantitative 34.9 mg/dL (0.00-0.90) H Total Protein 7.1 G/DL (6.4-8.2) Albumin 2.5 G/DL (3.4-5.0) L Globulin 4.6 g/dL Albumin/Globulin Ratio 0.5 (1.0-2.7) L Amylase Level 56 U/L (25-115) Lipase 285 U/L (73-393) Plan Problems: (1) Pancreatitis Assessment & Plan: There is slight enlargement of the pancreas. There is peripancreatic fluid extending into the mesenteric root, transverse mesial colon, and along the anterior Gerota's fascia bilaterally and in the left paracolic gutter. There is also free intraperitoneal fluid within the pelvic mesenteric leaves and pelvic cul-de- sac. The pancreatic parenchyma enhances normally. There are no discrete walled off fluid collections demonstrated. The gallbladder demonstrates questionable sludge but no definite gallstones. The bile ducts are nondilated and there are no definite biliary ductal stones demonstrated. The liver, spleen, adrenals, right kidney are unremarkable. Left kidney demonstrates a small interpolar region cyst. No retroperitoneal or mesenteric mass or adenopathy. No pelvic mass or adenopathy. The included lung bases demonstrate dependent posterior atelectatic changes, are otherwise clear. The bones are unremarkable., Impression: Evidence of uncomplicated nonnecrotizing acute pancreatitis Incidental finding of small interpolar region left renal cyst, posterior dependent pulmonary atelectatic changes No gallstones are evident. No biliary ductal dilatation. No evidence of choledocholithiasis. Normal caliber pancreatic duct. There is edema of the pancreas and considerable fluid/phlegmon in the upper abdomen. Fluid/phlegmon is seen surrounding the pancreas, along the anterior Gerota's fascia bilaterally, within the bilateral paracolic gutters, along the left anterior Gerota's fascia, and surrounding both kidneys. Extent of fluid is more widespread than demonstrated on previous CT. There is also evidence of free intraperitoneal fluid over the liver and the spleen. No focal pancreatic abnormality is evident. The liver, pancreas, adrenals, kidneys are unremarkable. There are small bilateral pleural effusions which are not evident on the previous day's CT scan. Impression: No evidence of gallstones or choledocholithiasis or biliary ductal dilatation Evidence of peripancreatic phlegmon, appearing more widespread and extensive than on the prior exam, and development of free intraperitoneal fluid (2) Abdominal pain Assessment & Plan: 38-year-old male with acute severe pancreatitis likely secondary to cholelithiasis. No EtOH history. No medication history. No recent travel or other events. Otherwise healthy. Slender young male. Initial nausea vomiting resolved. Pain significant improved now just a discomfort in the generalized mid abdominal area. Able to tolerate diet. No acute surgical intervention indicated or planned. I had a long discussion with patient regards to acute severe gallstone pancreatitis. I had a discussion with him regards to considerations for cholecystectomy. Given the severity of his acute event recommend waiting and cool down prior to cholecystectomy. We discussed the risk benefits and alternatives to early surgical intervention versus allowing inflammation to subside prior to elective cholecystectomy and after doing so patient states that he would like to wait for inflammation to resolve as well prior to cholecystectomy. He will monitor his diet closely. Care instructions and plan given to patient in detail. As patient's pain resolves he improves he is able to tolerate diet low-fat will recommend discharge with outpatient follow-up with his primary care physician for referral to surgeon within his network for considerations of elective cholecystectomy. Thank you for let me participate patient's care will follow with recommendations Trend labs Advance diet as tolerated Activity as tolerated US noted possibly single gallstone now passed? no meds no etoh hx lipids okay outpatient follow up late entry thank you Hernando Candelario Sep 07, 2019 13:44
--- NOTE | 2019-09-08 11:38 | NUR ---
*-* INSURANCE *-* ALL CLINICALS HAVE BEEN FAXED TO: REF# [id number] # [phone] FAX# [phone] REVIEWS/CLINICALS
--- NOTE | 2019-09-08 16:21 | Discharge Summary ---
Discharge Summary Discharge Summary _ DATE OF ADMISSION: 09/02/2019 DATE OF DISCHARGE: 09/07/2019 DISCHARGED BY: Dr. De La Fuente REASON FOR ADMISSION: 38 years old male with unremarkable past medical history, presented to the hospital with upper abdomen and lower chest discomfort, mainly located in epigastric area, which started suddenly the day prior to presentation to ED. Patient reported nonbloody emesis, but no diarrhea, no melena. Patient admitted to rare alcohol use. Patient denied previous history of abdominal symptoms. He denied previous surgery. Upon evaluation in emergency department vital signs were stable. Laboratory work-up revealed leukocytosis WBC 17.1, stable hemoglobin and hematocrit. Stable electrolytes and renal parameters. Lipase 55635 . Troponin negative. Chest x-ray revealed no acute cardiopulmonary pathology. CT scan of the abdomen and pelvis demonstrated uncomplicated nonnecrotizing acute pancreatitis. Patient admitted with diagnosis of acute pancreatitis CONSULTANTS: ID specialist Dr. Moreira GI specialist Dr. Clarke [facility] Dr. Candelario [facility] COURSE: Patient admitted to medical surgical floor. Patient was kept n.p.o. and tarted on IV fluids. Pain management was addressed as needed . Antiemetic provided as needed. MRI of the abdomen revealed no evidence of gallstones , choledocholithiasis or biliary ductal dilatation. Evidence of peripancreatic phlegmon appearing more widespread and extensive with development of free intraperitoneal fluid. Bilateral pleural effusions. Abdominal ultrasound revealed no acute findings. Urine toxicology screen was negative. Lipid panel was done to rule out any hypertriglyceridemia and was negative. Patient slowly started on liquid diet and was advanced to low-fat diet as tolerated. GI prophylaxis with PPI provided. Patient started on antibiotic as per ID specialist recommendation. Supportive care provided. Blood cultures were negative. Leukocytosis trending down. fevers resolved. Lipase trended down to 285. Amylase initially 972 down to 56. Patient started on pancrelipase. Patient was able to tolerate low-fat diet. Etiology of pancreatitis was unclear, suspected possibly due to cholelithiasics. Surgeon seen and evaluated patient. Patient possibly had a single gallstone , which he passed . No acute surgical intervention was indicated at this time. Surgeon recommended outpatient follow-up . Patient clinically stabilized and was ready for discharge. FINAL DIAGNOSES: Acute pancreatitis with phlegmon/etiology unclear Possible cholelithiasis with passed stone Possible sepsis/leukocytosis, fevers Abdominal pain DISCHARGE MEDICATIONS: See Medication Reconciliation list. DISCHARGE INSTRUCTIONS: Patient was discharged home. Outpatient follow-up with GI specialist and surgeon recommended I have been assigned to dictate discharge summary for this account. I was not involved in the patient's management. Roselyn Tan NP Sep 08, 2019 16:21
--- NOTE | 2019-09-11 10:34 | NUR ---
*-* INSURANCE *-* ALL CLINICALS AND REVIEWS HAVE BEEN FAXED TO: [facility] CM: [place] # [phone] FAX# [phone] REVIEWS/CLINICALS
== END 2019-09-07 11:30 | disposition home or self-care (01) | DRG 871 ==
LOC: EDBD 14:49 → EMR 17:22 → 3E 18:25 → EDBEDREQ 18:44 → 3E 20:04
DX: A41.9 Sepsis, unspecified organism (principal); K85.80 Other acute pancreatitis without necrosis or infection; K80.20 Calculus of gallbladder without cholecystitis without obstruction; R76.8 Other specified abnormal immunological findings in serum
CPT/HCPCS: 36415; 71045; 74177; 74181; 76700; 80048; 80053; 80061; 80307; 81003; 82150; 82550; 83605; 83690; 84484; 85007; 85025; 85610; 85651; 85730; 86140; 86706; 86707; 86708; 86709; 86803; 86850; 86900; 86901; 87040; 93005; 96361; 96374; 96375; 96376; 99285; G0480; J2405; J7030; J8499